=== PATIENT | female | born 1955 | race Caucasian/White ===

== ENCOUNTER 2017-02-08 00:12 | Inpatient (IN) | payer MEDICARE ==
[~2017-02-08] VITALS: Ht 154.9 cm; Wt 45.5 kg
[2017-02-08] VITALS (7 sets, daily range): BP systolic 97–153; BP diastolic 51–80
--- NOTE | ~2017-02-08 | WRIGHTHP ---
[place], [place] PATIENT HISTORY AND PHYSICAL EXAM NAME: RABIA CRAVEN [facility] #: [id number] UNIT #: [id number] ROOM: 505 DOCTOR: RAFAEL ADAMS DO BIRTHDATE: [birth year] DOS: 02/08/2017 PRIMARY CARE PHYSICIAN: None. The patient was seen and evaluated with the resident on 02/08/2017. Please see the resident's note for further details. ASSESSMENT: 1. Acute jvi-XA-pakrajmjg myocardial infarction. 2. Mild acute chronic obstructive pulmonary disease exacerbation. 3. Coronary artery disease with history of lex-QK-elywxxash myocardial infarction in 11/2015. 4. Chronic systolic heart failure, currently compensated. Last echocardiogram in 12/2016 measured an ejection fraction of 35-40%. 5. Chronic kidney disease, stage III. 6. History of automatic implantable cardioverter-defibrillator placement. 7. History of third-degree heart block. 8. Hypertension. 9. Hyperlipidemia. 10. Tobacco abuse. 11. History of congenital heart defect, requiring surgery at the age of 6. PLAN: Continue current treatment with heparin, statin, and a beta-evelin. Cardiology has been consulted. Continue to follow the cardiac enzymes. RAFAEL ADAMS DO CM:HISPHYS:PATIENT HISTORY AND PHYSICAL EXAMINATION 1311 1327 RAFAEL ADAMS DO 02/08/17 1328 interface
--- NOTE | ~2017-02-08 | EKG ---
[place], [place] ELECTROCARDIOGRAM REPORT NAME: RABIA CRAVEN UNIT #: [id number] ROOM: 505 DOCTOR: GREY BUTTERFIELD MD BIRTHDATE: [birth year] DOS: 02/08/2017 STUDY DONE: 02/08/2017. TIME: 12:48 a.m. The patient is in an AV sequentially paced rhythm with an occasional premature ventricular contraction. Average rate is 73 beats per minute. The ventricle is 100% paced aside from the PVC. Abnormal electrocardiogram. GREY BUTTERFIELD MD CM:EKGRPT:ELECTROCARDIOGRAM REPORT 1814 [id number] GREY BUTTERFIELD MD
[~2017-02-08 00:12] MED LIST: ASPIR-LOW81 MG PO; ATARAX25 MG PO; BACTRIM DS 8001 TA1 PO; DOXYCYCLINE100 M3 PO; PREDNISONE20 MG PO; VIBRAMYCIN100 MG PO; ZITHROMAX Z PA250 MG PO; ZYRTEC10 MG PO
[2017-02-08] MEDS ORDERED: LISINOPRIL5 MG PO (00:25)
[2017-02-08] MEDS ORDERED: CARVEDILOL6.25 MG PO (00:25)
[2017-02-08] MEDS ORDERED: ROSUVASTATIN CA10 MG PO (00:26)
[2017-02-08 00:50] LABS: BASO % 0.4 % (0.0-1.0); EOS # 0.1 10*3/uL (0.0-0.4); EOS % 1.9 % (1.0-4.0); HEMATOCRIT 32.9 % (37.0-47.0); HEMOGLOBIN 10.7 g/dl (12.0-16.0); LYMPH # 1.9 10*3/uL (1.3-4.4); LYMPH % 27.9 % (27.0-41.0); MEAN CORPUSCULAR HGB 26.4 pg (27.0-31.0); MEAN CORPUSCULAR HGB CONC 32.5 g/dl (33.0-37.0); MEAN PLATELET VOLUME 8.5 fl (9.6-12.3); MONO # 0.5 10*3/uL (0.1-1.0); MONO % 7.9 % (3.0-9.0); NEUT # 4.1 10*3/uL (2.3-7.9); NEUT % 61.8 % (47.0-73.0); PLATELET COUNT AUTOMATED 189 10*3/uL (130-400); RED BLOOD COUNT 4.06 10*6/uL (4.10-5.10); RED CELL DISTRI WIDTH 14.3 % (0-14.5); WHITE BLOOD COUNT 6.7 10*3/uL (4.8-10.8)
[2017-02-08 01:11] LABS: TROPONIN I 0.113 ng/ml (<0.045)
[2017-02-08 01:19] LABS: POTASSIUM 4.2 mmol/L (3.5-5.1)
[2017-02-08 04:28] LABS: PROTHROMBIN TIME 10.2 SECONDS (9.0-12.4)
[2017-02-08 05:59] LABS: CKMB 0.7 ng/ml (0.5-3.6)
[2017-02-08 06:09] LABS: BASO % 0.2 % (0.0-1.0); EOS % 0.2 % (1.0-4.0); HEMOGLOBIN 9.5 g/dl (12.0-16.0); LYMPH # 0.6 10*3/uL (1.3-4.4); LYMPH % 13.2 % (27.0-41.0); MEAN CELL VOLUME 80.3 fl (81.0-99.0); MEAN CORPUSCULAR HGB 26.3 pg (27.0-31.0); MEAN CORPUSCULAR HGB CONC 32.8 g/dl (33.0-37.0); MEAN PLATELET VOLUME 9.1 fl (9.6-12.3); MONO # 0.1 10*3/uL (0.1-1.0); MONO % 1.9 % (3.0-9.0); NEUT # 4.1 10*3/uL (2.3-7.9); NEUT % 84.1 % (47.0-73.0); PLATELET COUNT AUTOMATED 183 10*3/uL (130-400); RED BLOOD COUNT 3.61 10*6/uL (4.10-5.10); RED CELL DISTRI WIDTH 14.1 % (0-14.5); TROPONIN I 0.104 ng/ml (<0.045); WHITE BLOOD COUNT 4.9 10*3/uL (4.8-10.8)
[2017-02-08 06:11] LABS: MAGNESIUM 2.5 mg/dL (1.5-2.1); POTASSIUM 4.3 mmol/L (3.5-5.1)
[2017-02-08 06:17] LABS: THYROID STIM HORMONE (HS) 1.18 uIU/ml (0.358-4.75)
[2017-02-08 07:48] LABS: HEMOGLOBIN A1c 5.6 % (4.8-5.6)
[2017-02-08 11:24] LABS: CKMB 0.7 ng/ml (0.5-3.6)
[2017-02-08 11:26] LABS: TROPONIN I 0.089 ng/ml (<0.045)
[2017-02-08 18:17] LABS: CPK 36 U/L (26-192)
[2017-02-08 18:22] LABS: CKMB < 0.5 ng/ml (0.5-3.6)
[2017-02-08 18:23] LABS: TROPONIN I 0.089 ng/ml (<0.045)
[2017-02-09] VITALS: BP 108/50
[2017-02-09 06:55] LABS: HEMATOCRIT 25.7 % (37.0-47.0); HEMOGLOBIN 8.4 g/dl (12.0-16.0); LYMPH # 0.8 10*3/uL (1.3-4.4); LYMPH % 14.1 % (27.0-41.0); MEAN CELL VOLUME 81.6 fl (81.0-99.0); MEAN CORPUSCULAR HGB 26.7 pg (27.0-31.0); MEAN CORPUSCULAR HGB CONC 32.7 g/dl (33.0-37.0); MEAN PLATELET VOLUME 9.1 fl (9.6-12.3); MONO # 0.5 10*3/uL (0.1-1.0); MONO % 8.6 % (3.0-9.0); NEUT # 4.2 10*3/uL (2.3-7.9); NEUT % 76.6 % (47.0-73.0); PLATELET COUNT AUTOMATED 162 10*3/uL (130-400); RED BLOOD COUNT 3.15 10*6/uL (4.10-5.10); RED CELL DISTRI WIDTH 14.3 % (0-14.5); WHITE BLOOD COUNT 5.5 10*3/uL (4.8-10.8)
[2017-02-09 07:33] LABS: ALBUMIN 2.9 gm/dl (3.1-4.5); ALKALINE PHOSPHATASE 51 U/L (45-117); BILIRUBIN, TOTAL 0.1 mg/dl (0.2-1.0); BUN 21 mg/dl (7-24); CARBON DIOXIDE 26 mmol/L (21-32); CHLORIDE 112 mmol/L (98-107); EST GLOM FILT AFRICAN AMERICAN 41 ml/min; GLUCOSE 125 mg/dL (65-99); MAGNESIUM 2.5 mg/dL (1.5-2.1); POTASSIUM 4.4 mmol/L (3.5-5.1); SGOT/AST 9 IU/L (3-35); SODIUM 143 mmol/L (136-145); TOTAL PROTEIN 6.4 gm/dL (6.4-8.2)
[2017-02-09 07:55] LABS: SGPT/ALT < 6 U/L (12-78)
[2017-02-09 08:00] VITALS: BP 98/52
[2017-02-09 12:00] VITALS: BP 110/50
[2017-02-09 16:00] VITALS: BP 97/42
== END 2017-02-09 19:30 | disposition left against medical advice (07) | DRG 281 ==
LOC: ED 00:12 → 5E 01:32 → EDHOLD 01:32 → 5E 01:52
PROVIDERS: Emergency Medicine; Student in an Organized Health Care Education/Training Program
DX: I21.4 Non-ST elevation (NSTEMI) myocardial infarction (principal); N17.9 Acute kidney failure, unspecified; I44.2 Atrioventricular block, complete; I50.22 Chronic systolic (congestive) heart failure; I13.0 Hypertensive heart and chronic kidney disease with heart failure and stage 1 through stage 4 chronic kidney disease, or unspecified chronic kidney disease; N18.3 Chronic kidney disease, stage 3 (moderate); J44.1 Chronic obstructive pulmonary disease with (acute) exacerbation; D64.9 Anemia, unspecified; R73.9 Hyperglycemia, unspecified; F17.200 Nicotine dependence, unspecified, uncomplicated; Z53.21 Procedure and treatment not carried out due to patient leaving prior to being seen by health care provider; I25.10 Atherosclerotic heart disease of native coronary artery without angina pectoris; E78.5 Hyperlipidemia, unspecified; Z79.01 Long term (current) use of anticoagulants; Z79.899 Other long term (current) drug therapy; Z88.0 Allergy status to penicillin; Z88.2 Allergy status to sulfonamides; Z95.810 Presence of automatic (implantable) cardiac defibrillator; Z88.1 Allergy status to other antibiotic agents; Z91.012 Allergy to eggs; Z79.82 Long term (current) use of aspirin; Z82.49 Family history of ischemic heart disease and other diseases of the circulatory system; Z83.6 Family history of other diseases of the respiratory system

== ENCOUNTER 2019-09-05 16:45 | Inpatient (IN) | payer MEDICARE ==
[~2019-09-05] VITALS: Ht 157.4 cm; Wt 53.3 kg
--- NOTE | ~2019-09-05 | PR ---
[place], [place] PROGRESS NOTE NAME: RABIA CRAVEN UNIT #: [id number] ROOM: 408 DOCTOR: NARENDRA LEONG MD BIRTHDATE: [birth year] DOS: 09/08/2019 SUBJECTIVE: A 24-hour events noted. Discussed with the nursing staff. The patient is being evaluated by ____ lightning rod installer also, being treated for pneumonia. Does have shortness of breath. She is comfortably sleeping at this point. No obvious chest discomfort. REVIEW OF SYSTEMS: A 6-8 systems reviewed. PAST MEDICAL HISTORY: Significant for congenital history, coronary artery disease, cardiomyopathy, history of complete heart block, and COPD. PHYSICAL EXAMINATION: VITAL SIGNS: The patient is in sinus rhythm, pressure is 120/80, pulse rate is 101, sinus tachycardia. I's and O's is positive 600 mL. NECK: Supple. HEART: Sounds are regular. LUNGS: Diminished air entry with few coarse rhonchi. ABDOMEN: Soft, nontender. NEUROLOGIC: Stable. LABORATORY DATA: Pending. Yesterday's hemoglobin and hematocrit were 9.4 and 30.3. Creatinine is 2.2. IMPRESSION: Acute exacerbation of chronic obstructive pulmonary disease, history of cardiac dysrhythmia, permanent pacemaker, history of low ejection fraction, and history of chronic nicotine dependence. RECOMMENDATIONS: Continue the bronchodilators, steroids, and antibiotics. Dr. Hoyos is following this patient. Dr. Hoyos is supposed to review the echocardiogram. Monitor the heart rate and blood pressure closely and continue respiratory toilet. Chest x-ray done yesterday shows worsening patchy consolidation in both lung bases. As mentioned, Pulmonary is following and we will follow up. [place], [place] PROGRESS NOTE NAME: RABIA CRAVEN UNIT #: [id number] ROOM: 408 DOCTOR: NARENDRA LEONG MD BIRTHDATE: [birth year] NARENDRA LEONG MD CM:PNTRANS 2 3 NARENDRA LEONG MD 09/08/19733 interface
--- NOTE | ~2019-09-05 | EKG ---
[place], [place] ELECTROCARDIOGRAM REPORT NAME: RABIA CRAVEN UNIT #: [id number] ROOM: 408 DOCTOR: XIMENA DRAFT REPORT BIRTHDATE: [birth year] [facility] Test Date: 2019-09-05 Test Time: 19:51:45 Pat Name: RABIA CRAVEN Department: Room: 408 Gender: F Margin Analyst: : 1955 Requested By: AMY SUH Order Number: [id number] Reading MD: Vazquez Robin Measurements Intervals [place] Rate: 98 P: 26 CT: 203 QRS: -36 QRSD: 129 T: 130 QT: 444 QTc: 568 Interpretive Statements Atrial-sensed ventricular-paced complexes occ PVCs Electronically Signed On 09-06-2019 11:20:32 PST by Vazquez Robin CM:EKGRPT:ELECTROCARDIOGRAM REPORT 50 1120 AMY BUENO DRAFT REPORT AMY SUH MD
--- NOTE | ~2019-09-05 | CON ---
[place], [place] REPORT OF CONSULTATION NAME: RABIA CRAVEN UNIT #: [id number] ROOM: 408 DOCTOR: SALO MOCTEZUMANARENDRA BIRTHDATE: [birth year] DOS: 09/06/2019 I am covering for Dr. Hoyos. REASON FOR CONSULTATION: Shortness of breath. HISTORY OF PRESENT ILLNESS: A 64-year-old female admitted with shortness of breath for the last 4-5 days. The patient states that she smokes, but tapered off recently, but she continues to smoke. The patient started feeling short of breath for the last week and could not breathe yesterday and came. The patient states that she has a permanent pacemaker, history of myocardial infarction, did have congenital heart defect that was repaired when she was 6. She does follow up with Dr. Hoyos as an outpatient, but as mentioned the compliance is a big issue. The patient was admitted with respiratory failure and possible pneumonia on the chest x-ray and being treated. PAST MEDICAL HISTORY: Significant for chronic kidney disease, complete heart block by ECG, history of congenital septal defect, history of myocardial infarction, systolic congestive heart failure. PAST SURGICAL HISTORY: Permanent pacemaker, open heart surgery, section. SOCIAL HISTORY: Continues to smoke heavily. Denies any alcohol. FAMILY HISTORY: Positive for coronary artery disease. ALLERGIES: PENICILLIN. REVIEW OF SYSTEMS: CONSTITUTIONAL: No fever, no chills. HEENT: No visual disturbances or hearing problems. CARDIOVASCULAR: No chest discomfort. RESPIRATORY: Does have shortness of breath. ABDOMEN: No nausea, no vomiting. No abdominal pain. GENITOURINARY: No dysuria, hematuria. NEUROLOGIC: Stable. PHYSICAL EXAMINATION: VITAL SIGNS: Blood pressure is 119/60. HEENT: Unremarkable. NECK: Supple, no JVD. LUNGS: Diminished breath sounds with bilateral rales and rhonchi. HEART: Heart sounds are regular. ABDOMEN: Soft, nontender. NEUROLOGIC: Stable. EKGs intermittent paced rhythm. LABORATORY DATA: Sodium 141, potassium 4, creatinine is 1.7, hemoglobin 11.2, hematocrit 35.5. Chest x-ray showed patchy infiltrates, most pronounced on the right mid and lower lung. [place], [place] REPORT OF CONSULTATION NAME: RABIA CRAVEN UNIT #: [id number] ROOM: 408 DOCTOR: NARENDRA LEONG MD BIRTHDATE: [birth year] IMPRESSION: Acute respiratory failure with hypoxia secondary to probable community-acquired pneumonia, mildly elevated troponin, the last troponin was 0.478, which probably secondary to demand ischemia. Severe septicemia, tobacco abuse, permanent pacemaker, noncompliance. RECOMMENDATIONS: Recommended her to continue the present medications as ordered. We will get an echocardiogram to assess the ejection fraction. Continue with IV antibiotics as ordered and I will follow up. NARENDRA LEONG MD CM:CONSTR:REPORT OF CONSULTATION 1059 09/06/19 1830 interface
--- NOTE | ~2019-09-05 | PR ---
[place], [place] PROGRESS NOTE NAME: RABIA CRAVEN UNIT #: [id number] ROOM: 408 DOCTOR: YASHIRA WALKER MD BIRTHDATE: [birth year] DOS: 09/09/2019 SUBJECTIVE: She has been noted without any acute distress this morning. Denies symptoms of chest pain, fever or chills. She has a CT scan of the chest that was done without contrast yesterday. Shortness of breath was noted to be decreased. Denies symptoms of hemoptysis. Denies symptoms of headache or diplopia. The remaining systems are reviewed with all noted negative. OBJECTIVE: VITAL SIGNS: For the patient, which are recorded shows normal temperature this morning, respiratory rate 16-18, heart rate 103-112, blood pressure 132/75-122/74. The patient was not noted any distress. Pulse ox saturation 97% saturation on 2 liters nasal cannula. HEENT: Head was atraumatic. Eyes nonicterus. NECK: Supple. CARDIOVASCULAR: S1, S2 audible. LUNGS: Noted with decreased breaths in the lungs. There were no crackles or wheezing present. ABDOMEN: Soft, nontender. Bowel sounds present. EXTREMITIES: The patient was noted without any significant edema. MUSCULOSKELETAL: Noted without any acute deformities. LABORATORY DATA: The echocardiogram that was done yesterday was noted evidence of severe mitral valve regurgitation. Left ventricular ejection fraction also noted decreased 35-40%. CT scan of the chest revealed, shows moderate left and small left pleural fluid with compression atelectasis in the lungs as well. BMP: BUN 62, creatinine 2.63. CBC that was done shows a normal WBC count, hemoglobin 9.5, and platelet count was normal. IMPRESSION: Acute congestive heart failure, bilateral pleural fluid, compression atelectasis, acute kidney injury, and severe mitral valve regurgitation, ____ ejection fraction as well. PLAN OF THERAPY: No change in pulmonary standpoint, conservative treatment will be recommended for pleural fluid and other medical management. Further recommendation per vacuum caster for the congestive heart failure, mitral valve regurgitation management and the Nephrology Service for kidney injury. [place], [place] PROGRESS NOTE NAME: RABIA CRAVEN UNIT #: [id number] ROOM: 408 DOCTOR: YASHIRA WALKER MD BIRTHDATE: [birth year] YASHIRA GLOVER MD CM:PNTRANS 1047 1715 YASHIRA NOVAK MD 09/09/19 1740 interface
--- NOTE | ~2019-09-05 | PR ---
[place], [place] PROGRESS NOTE NAME: RABIA CRAVEN [facility] #: [id number] UNIT #: [id number] ROOM: 408 DOCTOR: BERENICE NJ MD BIRTHDATE: [birth year] DOS: 09/07/2019 SUBJECTIVE: The patient was seen by Dr. Gaffney on my behalf. She came in with some chest pain and cough and has been treated for pneumonia now. She does not have any chest pain. Has cough with some expectoration. No chills or shivering. Appetite is fine. No ____. She still smokes cigarettes. PHYSICAL EXAMINATION: GENERAL: This is a patient who is alert, oriented. VITAL SIGNS: Pulse is 100 irregular, blood pressure 122/65. NECK: JVP normal. LUNGS: She has rhonchi and crackles bilaterally. EXTREMITIES: No edema in lower extremities. LABORATORY DATA: ECG was unremarkable. Her troponin I level was 0.466. IMPRESSION: This patient with risk factors for coronary artery disease and slightly increased troponin I level. She has pneumonia, which is being treated. This has worsened her chronic obstructive pulmonary disease. I would do an echocardiogram and also repeat another troponin levels and see which way it turns. BERENICE NJ MD CM:PNTRANS 1733 [id number] BERENICE NJ MD 09/08/19 1201 interface
--- NOTE | ~2019-09-05 | PR ---
[place], [place] PROGRESS NOTE NAME: RABIA CRAVEN UNIT #: [id number] ROOM: 408 DOCTOR: BERENICE JN MD BIRTHDATE: [birth year] DOS: 09/09/2019 SUBJECTIVE: I talked to the patient in detail. She has been short of breath for years and had gotten worse in the last month or two. She has not had any palpitation, no loss of consciousness. Her appetite is poor. She remains lethargic. PHYSICAL EXAMINATION: GENERAL: This is a patient who is somewhat fatigued, quiet, alert. VITAL SIGNS: Pulse is regular at 100 beats per minute, blood pressure 122/74. NECK: JVP is elevated with positive AJR. Parasternal heave is present. CARDIOVASCULAR: [place] is displaced laterally. There is a grade 4-5/6 pansystolic murmur over the apex radiating laterally and anteriorly. EXTREMITIES: She has mild trace edema of the lower extremities. LUNGS: Breath sounds are diminished with lot of crackles in both lungs. LABORATORY DATA: An echocardiogram was done, which I also reviewed It was read by Dr. Gaffney however, it demonstrated an LV ejection fraction of about 40%, dilated left ventricle, severely dilated right atrium and there appears to be prolapse of both mitral leaflets with severe mitral regurgitation. There is moderate tricuspid regurgitation and at least moderate pulmonary hypertension. Chest x-ray shows pulmonary edema. IMPRESSION: 1. This patient has took-pw-slpdujee cardiomyopathy, probably related to severe mitral regurgitation, which had been demonstrated quite a long time ago. 2. Severe mitral regurgitation due to mitral valve prolapse. 3. Pulmonary hypertension, probably combination of chronic obstructive pulmonary disease and elevated left-sided pressures. RECOMMENDATIONS: My recommendations are to continue with IV furosemide, but I believe this patient needs to be transferred to a tertiary center for further assessment of mitral valve to look for underlying coronary artery disease and then consider mitral valve repair or replacement. I discussed this with Dr. Ocampo, resident and I believe they will make arrangements for transfer. [place], [place] PROGRESS NOTE NAME: RABIA CRAVEN UNIT #: [id number] ROOM: 408 DOCTOR: BERENICE NJ MD BIRTHDATE: [birth year] BERENICE NJ MD CM:PNTRANS 09 19 BERENICE NJ MD 09/09/19 1221 interface
--- NOTE | ~2019-09-05 | CON ---
[place], [place] REPORT OF CONSULTATION NAME: [facility]VEN [id number] UNIT #: [id number] ROOM: 408 DOCTOR: ADALBERTO NOVAK MDYASHIRA BIRTHDATE: [birth year] DOS: 09/07/2019 PULMONARY CONSULTATION, EVALUATION AND MANAGEMENT CONSULTATION REQUESTED BY: Hospitalist service. REASON FOR CONSULTATION: For assessment of the acute pneumonia, nonresolving respiratory symptoms. HISTORY OF PRESENT ILLNESS: This is a 64-year-old white female patient who has been admitted to the hospital under care of hospitalist service on the date of 09/05/2019. The patient reported she has been getting treated for about 4-5 days prior to admission to the hospital. She has reported symptoms of increased chest congestion and coughing, which has developed that has not been resolving. Symptoms noted progressive worsening. The shortness of breath later on was associated with cough, which has been reported by the patient with small amount of sputum expectoration, at times yellowish in color. She denies symptoms of chest pain, but chest tightness was reported. Denies any symptoms of hemoptysis. The patient does report symptoms of wheezing. Since hospitalization, she has been treated at this time for the respiratory failure as well as acute pneumonia, but the symptom resolution has not been noted significant. REVIEW OF SYSTEMS: CONSTITUTIONAL: Fatigue and tiredness reported. Denies symptoms of fever or chills. EYES: Denies any burning, redness, or tenderness. EARS, NOSE, THROAT SYMPTOMS: No sore throat, hoarseness, otalgia, postnasal drainage or epistaxis. CARDIOVASCULAR: Denies anginal pain, edema, pain of the lower extremities. GASTROINTESTINAL: Denies dysphagia, nausea, vomiting, diarrhea, abdominal pain, hematemesis, melena, or hematochezia. GENITOURINARY SYMPTOMS: No dysuria, suprapubic pain, or hematuria. MUSCULOSKELETAL: No acute joint pain, redness, or tenderness. Remaining systems were reviewed with the patient, they were noted all negative. PAST MEDICAL HISTORY: 1. History of chronic nicotine dependence. 2. History of congenital atrial septal defect. 3. Essential hypertension. 4. Coronary artery disease. 5. Heart failure with reduced ejection fraction. 6. History of complete heart block as well. 7. Possible chronic obstructive pulmonary disease. 8. History of chronic kidney disease stage 3. PAST SURGICAL HISTORY: 1. Heart surgery for the management of the cardiac defect. 2. Permanent pacemaker insertion. [place], [place] REPORT OF CONSULTATION NAME: RABIA CRAVEN UNIT #: [id number] ROOM: 408 DOCTOR: ADALBERTO NOVAK MD,YASHIRA BIRTHDATE: [birth year] 3. . SOCIAL HISTORY: She lives at home. She has been and does not have any children. Stating smoking half a pack of cigarettes actively for many years. FAMILY HISTORY: The patient's father from complications of heart problem and emphysema at age of 85 years. Mother at age of 36 years of acute myocardial infarction. HOME MEDICATIONS: Which were recorded on admission aspirin 81 mg, lisinopril 5 mg b.i.d., Coreg 6.25 mg p.o. b.i.d., and Crestor 30 mg daily. Medications which has been administered this morning reviewed as active use of Solu-Medrol 40 mg b.i.d., Zithromax intravenously, Rocephin 1 g daily, DuoNeb q.4 hours, Mucinex 1200 mg p.o. b.i.d., vitamin D, heparin for DVT prophylaxis, and some other p.r.n. meds. DRUG ALLERGIES: Reported: 1. BACTRIM. 2. PENICILLINS. PHYSICAL EXAMINATION: GENERAL: This is a 64-year-old female patient currently noted to be awake and alert without any distress. Height of 5 feet 2 inches, weight 207 pounds, BMI 19.6. VITAL SIGNS: Temperature curve was noted as normal, respiratory rate between 26 the highest to 18. The heart rate 133-82. Blood pressure 113/70-110/68. Pulse oxygen saturation recorded in the Emergency Room on 3 liters nasal cannula to 4 liters 95% saturation. Pulse oxygen recorded by the ambulance was 84% at rest on room air. HEENT: Head was atraumatic. Eyes nonicterus. NECK: Supple. CARDIOVASCULAR: S1, S2 is audible. LUNGS: Noted decreased breath in the lungs bilaterally, scattered crackles. There was no wheezing. ABDOMEN: Soft, nontender. Bowel sounds present. EXTREMITIES: Without edema. MUSCULOSKELETAL: Noted without any acute deformities. CENTRAL NERVOUS SYSTEM: Cranial nerves 2-12 intact. LABORATORY DATA: CBC that was done on 09/05/2019, WBC count normal, hemoglobin 11.2, platelet count were normal. PTT was noted as normal. The CMP on 09/05/2019, BUN 20, creatinine 1.75. Troponin minimally elevated at 0.0498. CBC this morning, WBC count 4.6, hemoglobin 9.8, platelet count of 169,000. BMP that was done yesterday, BUN 22, creatinine 1.76. BMP this morning, BUN of 24, creatinine 1.92, sodium 132. Blood culture, no bacterial growth was noted from admission. CBC of this morning, WBC count 4.4, hemoglobin 9.4, platelet count of 84,000. IMPRESSION: The patient who has been currently admitted to the hospital noted with: [place], [place] REPORT OF CONSULTATION NAME: RABIA CRAVEN UNIT #: [id number] ROOM: [facility] DOCTOR: YASHIRA WALKER MD BIRTHDATE: [birth year] 1. Acute exacerbation of chronic obstructive pulmonary disease with acute hypoxic respiratory failure as well as a strong suggestion. Current x-ray suggestive of acute congestive heart failure with reduced ejection fraction. 2. History of cardiac dysrhythmia, pacemaker in place as well. 3. The patient with history of low-grade chronic nicotine dependence as well with new onset of chronic obstructive pulmonary disease, has not been treated for chronic obstructive pulmonary disease from the past. PLAN OF THERAPY: Continue the steroids, bronchodilators and oxygen supplementation. Cardiology consultation has been ordered, which is noted in progress. Obtain a PA lateral chest x-ray to reassess with recurrent congestive heart failure, possible pleural effusions. The kidney function of the patient was noted abnormal, mild increase of creatinine secondary to diuretics that needs to be monitored closely for this. Other plan of therapy and care plan for treatment, additional changes will be recommended based on progression of the illness. The patient has not been started on nicotine replacement patches, stating that she has not been craving tobacco use. Counseling about tobacco cessation has been done at the bedside as well. Titrate oxygen supplementation, maintain pulse ox 92% or greater as well. Arterial blood gas will be obtained to assess the ventilatory assessment as well. Titrate oxygen supplementation, maintain pulse ox 92% or greater. At this time, the patient does not require any immediate need of the BiPAP; however, the BiPAP need could be assessed based on further progression of the illness. No changes in antibiotics or corticosteroids needs to be made. Thank you for allowing me to participate in the care of this patient. YASHIRA GLOVER MD CM:CONSTR:REPORT OF CONSULTATION 1240 09/07/19 2020 interface
--- NOTE | ~2019-09-05 | EKG ---
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
--- NOTE | ~2019-09-05 | EKG ---
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
--- NOTE | ~2019-09-05 | PR ---
[place], [place] PROGRESS NOTE NAME: RABIA CRAVEN UNIT #: [id number] ROOM: 408 DOCTOR: ADALBERTO NOVAK MD,YASHIRA BIRTHDATE: [birth year] DOS: 09/08/2019 PULMONARY PROGRESS NOTE SUBJECTIVE: She has been noted comfortable at this time, resting on the bed. Shortness of breath noted somewhat decreased. Cough has been noted [id number] without any sputum expectoration and symptoms of chest pain reported by the patient. headache, diplopia, nausea, vomiting, diarrhea, abdominal pain, hematemesis, melena, or hematochezia. The review of systems otherwise noted negative. OBJECTIVE: VITAL SIGNS: Normal temperature, respiratory rate 18, heart rate 101, blood pressure 124/78 recorded this morning. The pulse oxygen saturation on 2.5 liters nasal cannula 96% saturation recorded. HEENT: Examination shows head was atraumatic. Eyes nonicterus. NECK: Supple. CARDIOVASCULAR: S1, S2 audible. LUNGS: Noted without any wheezing or crackles at this time. Breaths are noted decreased in the lungs bilaterally with scattered expiratory wheezing. There were no crackles heard. ABDOMEN: Soft, nontender. Bowel sounds present. EXTREMITIES: No new change. MUSCULOSKELETAL: Without acute deformities. CENTRAL NERVOUS SYSTEM: Generally intact. LABORATORY DATA: Arterial blood gas that was done yesterday, pH of 7.24, pCO2 of 44, pO2 80 consistent with mild respiratory acidosis, mostly metabolic acidosis as well. The BMP that was done this morning, BUN 41, creatinine 2.21. Glucose 132. Arterial blood gas this morning gas. CBC this morning, WBC count 8.8, hemoglobin 9, hematocrit 33.0, platelet count was 196,000. Chest x-ray, 2-view, which was completed yesterday was reviewed personally and it shows evidence of basilar area of infiltration atelectasis or pleural fluid would be suspected. IMPRESSION: 1. The patient who has been currently noted with acute kidney injury, which are noted gradually progressive metabolic acidosis and respiratory acidosis. 2. Acute pneumonia, possibly superimposed congestive heart failure. 3. Acute exacerbation of chronic obstructive pulmonary disease as well. PLAN OF MANAGEMENT: Continuation of the bronchodilators, oxygen supplementation, and change in the antibiotic, Zithromax, and doxycycline. Additional coverage of gram-positive organisms. Diuresis carefully to be done considering her kidney function as well. Avoid intravenous fluids administration. Sputum for Gram stain culture was ordered. Another chest x-ray will be done in the morning for as well. Supportive care. [place], [place] PROGRESS NOTE NAME: RABIA CRAVEN UNIT #: [id number] ROOM: [facility] DOCTOR: YASHIRA WALKER MD BIRTHDATE: [birth year] YASHIRA GLOVER MD CM:JOSE [id number] YASHIRA NOVAK MD [id number] interface
[~2019-09-05 16:45] MED LIST changes: +CARVEDILOL6.25 MG PO; +LISINOPRIL5 MG PO; +ROSUVASTATIN CA10 MG PO
[2019-09-05 17:12] LABS: BASO % 0.5 % (0.0-1.0); EOS % 0.5 % (1.0-4.0); HEMATOCRIT 35.5 % (37.0-47.0); HEMOGLOBIN 11.2 g/dl (12.0-16.0); LYMPH # 1.1 10*3/uL (1.3-4.4); LYMPH % 18.1 % (27.0-41.0); MEAN CELL VOLUME 83.9 fl (81.0-99.0); MEAN CORPUSCULAR HGB 26.5 pg (27.0-31.0); MEAN CORPUSCULAR HGB CONC 31.5 g/dl (33.0-37.0); MONO # 0.4 10*3/uL (0.1-1.0); MONO % 6.5 % (3.0-9.0); NEUT # 4.6 10*3/uL (2.3-7.9); NEUT % 74.2 % (47.0-73.0); PLATELET COUNT AUTOMATED 200 10*3/uL (130-400); RED BLOOD COUNT 4.23 10*6/uL (4.10-5.10); RED CELL DISTRI WIDTH 14.6 % (0-14.5); WHITE BLOOD COUNT 6.1 10*3/uL (4.8-10.8)
[2019-09-05 17:21] LABS: ACT PARTIAL THROMBO TIME 25.1 SECONDS (20.0-32.1); INTERNATIONAL NORM RATIO 0.9 (2.0-3.5)
[2019-09-05 17:31] LABS: ALBUMIN 3.1 gm/dl (3.1-4.5); CREATININE 1.75 mg/dL (0.55-1.02); TOTAL PROTEIN 7.2 gm/dL (6.4-8.2)
[2019-09-05 17:35] LABS: TROPONIN I 0.498 ng/ml (<0.045)
--- NOTE | 2019-09-05 17:35 | NUR ---
TROPONIN 0.498. MITZI MUÑOZ NOTIFIED.
[2019-09-05 17:44] VITALS: BP 140/79
--- NOTE | 2019-09-05 18:04 | NUR ---
DINNER TRAY ORDERED. PT IN NO DISTRESS.
[2019-09-05 18:54] VITALS: BP 135/77
--- NOTE | 2019-09-05 19:03 | NUR ---
NURSE TO NURSE REPORT GIVEN TO THIS RN.PT AWAITING BED ASSIGNMENT FOR ADMISSION TO UNIT.
[2019-09-05 19:35] VITALS: BP 127/70
--- NOTE | 2019-09-05 19:50 | NUR ---
PT PROVIDED BOXED SANDWICH LUNCH AND DRINK.
--- NOTE | 2019-09-05 19:51 | NUR ---
PT UPDATED ON CURRENT PLAN OF CARE AND PROVIDED ROOM#.
--- NOTE | 2019-09-05 19:55 | NUR ---
LAB CALLED WITH CRITICAL TROPONIN LEVEL 0.478.
[2019-09-05 20:02] VITALS: BP 119/61
[2019-09-05 20:20] VITALS: BP 135/79
--- NOTE | 2019-09-05 20:20 | NUR ---
A 64, admitted to , under the services of DILCIA Grullon DO with a diagnosis of COMMUNITY ACQUIRED PNEUMONIA, ELEVATED TROPONINS. Chief complaint is SOB. Patient arrived via bed from ER. Monitor applied. Initial assessment completed. Vital signs taken and recorded. DILCIA GRULLON DO notified of admission to the unit. Orders received. See assessment for past medical history, medications and allergies. Patient and/or family oriented to unit. [address] visitation policy reviewed. Clothing/patient valuable form completed. FILIPE MOON
--- NOTE | 2019-09-05 22:00 | NUR ---
PT IS ASLEEP IN BED AT THIS TIME. NO S/S OF DISTRESS NOTED. RESPS ARE EASY AND NONLABORED. BED IS LOW, CALL LIGHT WITHIN REACH. WILL CONTINUE TO MONITOR.
--- NOTE | 2019-09-05 23:32 | NUR ---
DR ALCALA CALLED AND MADE AWARE OF TROPONIN 0.466. NO NEW ORDERS AT THIS TIME.
--- NOTE | 2019-09-05 23:49 | NUR ---
PATIENT REQUESTING BREATHING TREATMENT.RESPIRATORY CALLED.
[2019-09-06] VITALS: BP 113/77
--- NOTE | 2019-09-06 00:10 | NUR ---
IV IN RIGHT HAND INFILTRATED. DISCONTINUED AND RESTARTED.
--- NOTE | 2019-09-06 00:15 | NUR ---
IV started right forearm with #22 protective cath after 1 attempts. Site prepped with Chloroprep. Sterile dressing applied. Patient tolerated procedure well. IV infusing at 125 cc/hr. DOUG CARVALHO
--- NOTE | 2019-09-06 02:00 | NUR ---
PATIENT RESTING WITH EYES CLOSED. RESPIRATIONS EASY AND UNLABORED. CALL LIGHT WITHIN REACH. WILL MONITOR.
--- NOTE | 2019-09-06 04:00 | NUR ---
PATIENT RESTING WITH EYES CLOSED.RESPIRATIONS EASY AND UNLABORED. CALL LIGHT WITHIN REACH. WILL MONITOR FOR EFFECTIVENESS.
--- NOTE | 2019-09-06 05:33 | NUR ---
24 HR chart check completed.
[2019-09-06 06:36] LABS: BASO % 0.7 % (0.0-1.0); EOS % 0.7 % (1.0-4.0); HEMATOCRIT 31.5 % (37.0-47.0); HEMOGLOBIN 9.8 g/dl (12.0-16.0); LYMPH # 1.6 10*3/uL (1.3-4.4); LYMPH % 34.5 % (27.0-41.0); MEAN CORPUSCULAR HGB 26.1 pg (27.0-31.0); MEAN CORPUSCULAR HGB CONC 31.1 g/dl (33.0-37.0); MEAN PLATELET VOLUME 9.4 fl (9.6-12.3); MONO # 0.5 10*3/uL (0.1-1.0); MONO % 10.1 % (3.0-9.0); NEUT # 2.5 10*3/uL (2.3-7.9); PLATELET COUNT AUTOMATED 169 10*3/uL (130-400); RED BLOOD COUNT 3.75 10*6/uL (4.10-5.10); RED CELL DISTRI WIDTH 14.5 % (0-14.5); WHITE BLOOD COUNT 4.6 10*3/uL (4.8-10.8)
[2019-09-06 06:56] LABS: CREATININE 1.76 mg/dL (0.55-1.02); PHOSPHOROUS 4.3 mg/dL (2.5-4.9); POTASSIUM 4.1 mmol/L (3.5-5.1)
[2019-09-06 07:06] LABS: FREE T4 0.97 ng/dl (0.76-1.46); THYROID STIM HORMONE (HS) 2.81 uIU/ml (0.358-4.75)
[2019-09-06 07:55] LABS: VITAMIN D, 25-HYDROXY 20.8 ng/mL (30-100)
[2019-09-06 08:00] VITALS: BP 115/73
--- NOTE | 2019-09-06 10:03 | NUR ---
MEDICATED WITH PRN ZOFRAN PER ORDER.
[2019-09-06 12:00] VITALS: BP 106/67
[2019-09-06 16:00] VITALS: BP 111/63
--- NOTE | 2019-09-06 19:00 | NUR ---
ASSUMED CARE FOR THIS PT AT THIS TIME. PT AWAKE IN BED WATCHING TV. NO C/O VOICED AT PRESENT TIME. CALL LIGHT IN REACH.
[2019-09-06 20:00] VITALS: BP 125/76; BP 126/66
[2019-09-07] VITALS: BP 113/70
--- NOTE | 2019-09-07 02:52 | NUR ---
24 HR chart check completed.
[2019-09-07 07:14] LABS: BASO % 0.2 % (0.0-1.0); HEMATOCRIT 30.3 % (37.0-47.0); HEMOGLOBIN 9.4 g/dl (12.0-16.0); LYMPH # 0.5 10*3/uL (1.3-4.4); LYMPH % 11.9 % (27.0-41.0); MEAN CELL VOLUME 86.3 fl (81.0-99.0); MEAN CORPUSCULAR HGB 26.8 pg (27.0-31.0); MEAN PLATELET VOLUME 9.6 fl (9.6-12.3); MONO # 0.4 10*3/uL (0.1-1.0); MONO % 8.5 % (3.0-9.0); NEUT # 3.4 10*3/uL (2.3-7.9); NEUT % 78.9 % (47.0-73.0); PLATELET COUNT AUTOMATED 184 10*3/uL (130-400); RED BLOOD COUNT 3.51 10*6/uL (4.10-5.10); RED CELL DISTRI WIDTH 14.7 % (0-14.5); WHITE BLOOD COUNT 4.4 10*3/uL (4.8-10.8)
[2019-09-07 07:18] LABS: CREATININE 1.92 mg/dL (0.55-1.02); POTASSIUM 4.4 mmol/L (3.5-5.1)
[2019-09-07 07:39] VITALS: BP 120/70
--- NOTE | 2019-09-07 08:08 | NUR ---
PT WAS AWAKE AND PLEASANT, PT. STATES NO COMPLAINTS AT THIS TIME, WILL CONTINUE TO MONITOR TYLOR JAYNA SPMILAGROSCC
--- NOTE | 2019-09-07 09:00 | NUR ---
Fill Manager in to talk to patient. Patient states lives at home with alone. There are few steps in the home. Physician: none Pharmacy: [facility] Home health services: none Patient's level of ADLs: INDEPENDENT Patient has working utilities: all working DME: none Follow-up physician's appointment after d/c: will be made by hospitalist nurse director upon discharge Does patient want to access PORTAL?: no Discharge plan discussed with patient, she lives at home, is independent in adls and ambulation, she states she will return home when medically stable and denies any home needs. patient does not have a regular doctor and will need one upon discharge, she will be given a list of physicians to chose to have her follow up appointment made with, case management will follow. RALPH SWARTZ
--- NOTE | 2019-09-07 10:08 | NUR ---
DR. GLOVER AWARE OF CONSULT AND HAS SEEN THE PATIENT.
--- NOTE | 2019-09-07 10:37 | NUR ---
PT. IS RECIEVING BREATHING TREATMENT, TRIED TO APPLY TEDS, PT. SAID "NOT AT THIS TIME". TYLOR DORANTES SPNRCC
--- NOTE | 2019-09-07 11:04 | NUR ---
MEDICATED FOR NAUSEA, PT REFUSES ANY FURTHER ANTIBIOTICS AND ASKED THAT THE AZITHROMYCIN NOT BE RECONNECTED, HIMANSHU BRAY NOTIFIED, DR. NJ IN TO SEE PT LETICIA BARBOZACC
--- NOTE | 2019-09-07 11:06 | NUR ---
PATIENT REFUSING TO TAKE THE REST OF ZITHROMAX IV. DR. SELF NOTIFIED.
[2019-09-07 11:39] VITALS: BP 110/68
--- NOTE | 2019-09-07 11:48 | NUR ---
PT. HAS NO COMPLAINTS AT THIS TIME, ZOFRAN HELPED WITH NAUSEA, PT. DOSENT FEEL WELL, REFUSED BATH, IS RESTING TYLOR DORANTES SPNRCC
--- NOTE | 2019-09-07 13:31 | NUR ---
ABG'S DRAWN BY RESP THERAPY [facility]
--- NOTE | 2019-09-07 13:33 | NUR ---
TO RADIOLOGY FOR CXR ACCOMPANIED BY TRANSPORT LETICIA BARBOZACC
[2019-09-07 13:37] LABS: ABG HCO3 18.3 mmol/l (22-26); ABG O2 SATURATION 95.8 % (95-97); ARTERIAL BLOOD GAS PH 7.242 (7.35-7.45); ARTERIAL BLOOD GAS PO2 80.5 mmHg (80-90)
[2019-09-07 13:38] LABS: ABG BASE EXCESS -8.2 mmol/L (-2.0-2.0)
--- NOTE | 2019-09-07 15:15 | NUR ---
PATIENT STATED SHE DID NOT NEED ON BI-PAP AT THIS TIME. WILL WEAR IT AT HS.
[2019-09-07 16:00] VITALS: BP 123/65
--- NOTE | 2019-09-07 19:00 | NUR ---
ASSUMED CARE FOR THIS PT AT THIS TIME. PT AWAKE IN BED WATCHING TV. C/O COUGH. PT TEACHING PROVIDED RE COUGH AND DEEP BREATHING TO PROMOTE LUNG EXPANSION AND MUCUS PRODUCTION. PT STATES SHE HAS BEEN USING IS EVERY HOUR. PT ADVISED SOLUMEDROL WAS INCREASED TODAY. CALL LIGHT IN REACH.
[2019-09-07 20:00] VITALS: BP 125/85
--- NOTE | 2019-09-07 22:30 | NUR ---
PT REFUSED TO WEAR BIPAP. SHE SAID SHES BREATHING JUST FINE
[2019-09-08] VITALS: BP 120/81
[2019-09-08 06:51] LABS: HEMOGLOBIN 9.9 g/dl (12.0-16.0); MEAN CELL VOLUME 86.4 fl (81.0-99.0); MEAN CORPUSCULAR HGB 25.9 pg (27.0-31.0); MEAN PLATELET VOLUME 9.9 fl (9.6-12.3); PLATELET COUNT AUTOMATED 196 10*3/uL (130-400); RED BLOOD COUNT 3.82 10*6/uL (4.10-5.10); RED CELL DISTRI WIDTH 14.8 % (0-14.5); WHITE BLOOD COUNT 8.8 10*3/uL (4.8-10.8)
[2019-09-08 07:05] LABS: CREATININE 2.21 mg/dL (0.55-1.02); POTASSIUM 4.7 mmol/L (3.5-5.1)
[2019-09-08 07:56] LABS: ABG HCO3 19.1 mmol/l (22-26); ABG O2 SATURATION 77.4 % (95-97); ARTERIAL BLOOD GAS PCO2 50.1 mmHg (35-45); ARTERIAL BLOOD GAS PH 7.206 (7.35-7.45); ARTERIAL BLOOD GAS PO2 45.9 mmHg (80-90)
[2019-09-08 07:57] LABS: ABG BASE EXCESS -8.2 mmol/L (-2.0-2.0)
[2019-09-08 08:00] VITALS: BP 124/78
[2019-09-08 08:05] LABS: ACANTHOCYTES FEW; OVALOCYTES FEW; PLATELET SUFFICIENCY NORMAL (NORMAL); TOTAL CELLS COUNTED 100 #CELLS
[2019-09-08 08:06] LABS: TOXIC GRANULATION SLIGHT
--- NOTE | 2019-09-08 09:00 | NUR ---
case management visits with patient, she will return home when medically stable and denies any home needs, she will have an echo today and continue with respiratory treatment, case management will follow
[2019-09-08 12:00] VITALS: BP 121/77
--- NOTE | 2019-09-08 13:28 | NUR ---
Dr. Hoyos notified of critical value finding on echo. Nurse notified
--- NOTE | 2019-09-08 13:33 | NUR ---
DR SELF NOTIFIED THAT QASIM THE MANAGER UNDERWRITING CALLED DR JONES WITH [facility] REGARDING SEVERE MR, ACUTE FLAIL MITRAL LEAFLET AND AN EF OF APPOXIMATELY 35%. SHE WAS REQUESTING DR NJ'S INTERPRETATION.
[2019-09-08 16:00] VITALS: BP 123/89
--- NOTE | 2019-09-08 18:13 | NUR ---
DULCOLAX GIVEN FOR COMPALINTS OF CONSTIPATION. WILL MONITOR.
[2019-09-08 20:00] VITALS: BP 115/73
[2019-09-09] VITALS: BP 132/75
--- NOTE | 2019-09-09 00:35 | NUR ---
PT AGREEING TO WEAR BIPAP AT THIS TIME. RESPIRATORY AT BEDSIDE TO PUT PT ON BIPAP. CONTINOUS POX APPLIED PER ORDER. WILL MONITOR. CALL LIGHT IN REACH.
--- NOTE | 2019-09-09 01:38 | NUR ---
PT TAKEN OFF BIPAP AT THIS TIME PER REQUEST. O2 APPLIED AT 2L NC. CONTINUOUS POX REMOVED PT NO LONGER ON BIPAP.
[2019-09-09 06:42] LABS: HEMOGLOBIN 9.5 g/dl (12.0-16.0); MEAN CELL VOLUME 84.5 fl (81.0-99.0); MEAN CORPUSCULAR HGB 25.9 pg (27.0-31.0); MEAN CORPUSCULAR HGB CONC 30.6 g/dl (33.0-37.0); MEAN PLATELET VOLUME 9.5 fl (9.6-12.3); NUCLEATED RED BLOOD CELL 0.5 % (0.0-0.0); PLATELET COUNT AUTOMATED 199 10*3/uL (130-400); RED BLOOD COUNT 3.67 10*6/uL (4.10-5.10); RED CELL DISTRI WIDTH 14.7 % (0-14.5); WHITE BLOOD COUNT 6.4 10*3/uL (4.8-10.8)
--- NOTE | 2019-09-09 06:46 | NUR ---
HERE TO SEE PT.
[2019-09-09 06:50] LABS: CREATININE 2.63 mg/dL (0.55-1.02); POTASSIUM 4.6 mmol/L (3.5-5.1)
[2019-09-09 07:54] LABS: OVALOCYTES FEW; PLATELET SUFFICIENCY NORMAL (NORMAL); POLYCHROMASIA SLIGHT; TOTAL CELLS COUNTED 100 #CELLS
[2019-09-09 08:00] VITALS: BP 122/74
--- NOTE | 2019-09-09 08:15 | NUR ---
PT FININSHING IN [place], [facility] OX 94-95% ON 1L/M NC. PT. WALKING TO BED SAT 93%. O2 APPLLIED TO PT AT 2L/M PT C/O SOB. RN NOTIFIED. NOTIFIED.
--- NOTE | 2019-09-09 08:24 | NUR ---
Occupational Therapy evaluation completed on 4 with full eval to follow. Precautions include fall risk,new oxygen use, SOB w/modere exertion, low complexity level 04440 via chart review, testing and evaluation. Patient says she could go stay with her daughter for as long as needed instead of home alone upon d/c. OTR recommended this plan and OT per pOC and home health SN,OT,PT upon d/c. Thank you. Justyna Arita OTR/l
--- NOTE | 2019-09-09 11:25 | NUR ---
PHYSICAL THERAPY [place] completed low complexity [id number]. PT to work on trasfers,strengthing, amb and endurance/safety. Pt would benefit from further therap/SNF at discharge as she lives alone and states "I can't manage on my own right now" pt did discuss about moving in w her niece Sussy, but nothing definitive at this point. Pt also states MD in discussion w transfering her to [facility] for further cardiac work up. Will follow and cont to assess, thank you. Amelia Whitley PT
[2019-09-09 12:00] VITALS: BP 129/72
--- NOTE | 2019-09-09 12:00 | NUR ---
OT NOTE Pt was seen this P.M. 1:1 for 15 minute OT session. Upon arrival pt was supine in bed. Pt identified by name and and had no complaints at this time. Pt presented to therapy with continuous 2L-O2 via NC which she remained on throughout entire session. Pt's resting SpO2 was 94%. Pt transferred supine to sit EOB with SBA. Pt completed multiple sit to stand transfers from bed level with [facility] PEDIATRIC REGISTERED NURSE. Challenged pt's static standing tolerance needed for increased I in self care tasks and functional trasnfers. Pt was able to tolerate aprox 60 seconds at a time before sitting due to fatigue, SpO2 still within functional limits. Pt then requested to get back into bed and rest due to fatigue. Pt transferred sit to supine with SBA, there she was left with call light in hand, tray table in place, and bed alarm activated for safety. Continue with rec D/C plan to home with home health. GREGORIO Mckinley/Salvador
--- NOTE | 2019-09-09 13:45 | NUR ---
report called to [facility] questions answered. pt is aware of transport attempted to call family member andrea an but did not answer pt updated
--- NOTE | 2019-09-09 14:06 | NUR ---
PT LEFT VIA AMBULANCE TO GO TO [facility] HEART MONITOR TAKEN OFF IV LEFT IN PT STABLE @ DISCHARGE
--- NOTE | 2019-09-09 15:26 | NUR ---
OCCUPATIONAL THERAPY CO-SIGN I approve of the Occupational Therapy notes written above. Mayda Louie, OTR/L
--- NOTE | 2019-09-15 07:14 | NUR ---
OCCUPATIONAL THERAPY CO-SIGN I approve of the Occupational Therapy notes written above. CATRACHITO MARQUEZ OTR/Salvador
== END 2019-09-09 14:06 | disposition short-term general hospital (02) | DRG 871 ==
LOC: ED 16:45 → EDHOLD 18:27 → 4E 18:27
PROVIDERS: Emergency Medicine; Hospitalist; Internal Medicine; Internal Medicine Critical Care Medicine; ADMIT Internal Medicine
DX: A41.9 Sepsis, unspecified organism (principal); J18.9 Pneumonia, unspecified organism; J96.01 Acute respiratory failure with hypoxia; I21.A1 Myocardial infarction type 2; I50.23 Acute on chronic systolic (congestive) heart failure; E44.0 Moderate protein-calorie malnutrition; I13.0 Hypertensive heart and chronic kidney disease with heart failure and stage 1 through stage 4 chronic kidney disease, or unspecified chronic kidney disease; N17.9 Acute kidney failure, unspecified; I42.9 Cardiomyopathy, unspecified; E87.4 Mixed disorder of acid-base balance; J44.1 Chronic obstructive pulmonary disease with (acute) exacerbation; J44.0 Chronic obstructive pulmonary disease with (acute) lower respiratory infection; Z68.1 Body mass index [BMI] 19.9 or less, adult; J98.11 Atelectasis; I27.20 Pulmonary hypertension, unspecified; E87.8 Other disorders of electrolyte and fluid balance, not elsewhere classified; N18.3 Chronic kidney disease, stage 3 (moderate); D50.9 Iron deficiency anemia, unspecified; I25.10 Atherosclerotic heart disease of native coronary artery without angina pectoris; F17.210 Nicotine dependence, cigarettes, uncomplicated; E55.9 Vitamin D deficiency, unspecified; I34.0 Nonrheumatic mitral (valve) insufficiency; R65.20 Severe sepsis without septic shock; Z71.6 Tobacco abuse counseling; Z88.0 Allergy status to penicillin; Z88.2 Allergy status to sulfonamides; Z91.012 Allergy to eggs; Z98.891 History of uterine scar from previous surgery; Z95.0 Presence of cardiac pacemaker; Z82.49 Family history of ischemic heart disease and other diseases of the circulatory system; Z82.5 Family history of asthma and other chronic lower respiratory diseases; I25.2 Old myocardial infarction; Z88.8 Allergy status to other drugs, medicaments and biological substances; Z91.19 Patient's noncompliance with other medical treatment and regimen

== ENCOUNTER 2020-02-01 14:09 | Inpatient (IN) | payer OTHER ==
[2020-02-01] VITALS (7 sets, daily range): BP systolic 109–143; BP diastolic 67–86
[~2020-02-01] VITALS: Ht 152.4 cm; Wt 48.6 kg
--- NOTE | 2020-02-01 14:27 | NUR ---
PT STATES SHE IS OUT OF "WATER PILLS" FOR PAST 3-4 DAYS
[2020-02-01 14:45] LABS: BASO % 0.6 % (0.0-1.0); EOS # 0.1 10*3/uL (0.0-0.4); EOS % 0.9 % (1.0-4.0); HEMATOCRIT 34.8 % (37.0-47.0); LYMPH # 1.1 10*3/uL (1.3-4.4); MEAN CELL VOLUME 82.9 fl (81.0-99.0); MEAN CORPUSCULAR HGB CONC 31.3 g/dl (33.0-37.0); MEAN PLATELET VOLUME 9.1 fl (9.6-12.3); MONO # 0.5 10*3/uL (0.1-1.0); MONO % 8.6 % (3.0-9.0); NEUT # 3.7 10*3/uL (2.3-7.9); NEUT % 68.7 % (47.0-73.0); PLATELET COUNT AUTOMATED 183 10*3/uL (130-400); RED CELL DISTRI WIDTH 15.5 % (0-14.5); WHITE BLOOD COUNT 5.4 10*3/uL (4.8-10.8)
--- NOTE | 2020-02-01 14:53 | NUR ---
PT RESTING IN BED IN HIGH FOWLERS ON 2LPM O2 VIA NASAL CANNULA PT STATES SHE IS FEELING BETTER AT THIS TIME RESP AT 32 / MIN DOWN FROM 40 MIN UPON ARRIVAL PULSE OX NOW 98%
[2020-02-01 14:56] LABS: ACT PARTIAL THROMBO TIME 24.4 SECONDS (20.0-32.1); INTERNATIONAL NORM RATIO 0.9 (2.0-3.5)
[2020-02-01 15:32] LABS: ALBUMIN 3.2 gm/dl (3.1-4.5); CREATININE 1.82 mg/dL (0.55-1.02); POTASSIUM 4.6 mmol/L (3.5-5.1); TOTAL PROTEIN 6.9 gm/dL (6.4-8.2)
[2020-02-01 16:00] LABS: TROPONIN I 0.503 ng/ml (<0.045)
--- NOTE | 2020-02-01 17:10 | NUR ---
PT STATES SHE IS FEELING BETTERSINCE BREATHING TX ENROUTE AND O2 WHILE HERE IN ER PT WITH NOTED DECREASE IN RESP WITH DECREASED RESP EFFORT PT HAS NO REQUESTS AT THIS TIME
--- NOTE | 2020-02-01 17:26 | NUR ---
PT SLEEPING IN BED NO SIGN OF DISTRESS PULSE OX 98% ON 2LPM O2 VIA NC RESP 24
--- NOTE | 2020-02-01 18:22 | NUR ---
PT TAKES LISINAPRIL ASPRIN WATER PILL AND CHOLESTOROL PILL PT STATES HER DR KNOWS THEM ALL
--- NOTE | 2020-02-01 19:03 | NUR ---
NURSE TO NURSE REPORT GIVEN TO THIS RN.PT AWAITING ROOM ASSIGNMENT FOR ADMISSION.
--- NOTE | 2020-02-01 20:51 | NUR ---
DR ALCALA CONTACTED AND NOTIFIED OF TROPONIN LEVEL 0.519 AND ADVISED TO NOT GIVE BOLUS OF HEPARIN DUE TO PTT 24.4.
--- NOTE | 2020-02-01 21:16 | NUR ---
PER DR NJ VERBAL ORDER, ORDER FOR LOPRESSOR 12.5MG NOW TO BE DISCONTINUED. DR NJ VERBAL ORDER FOR LOPRESSOR 25MG PO NOW AND LOPRESSOR 25MG PO BID.VERBAL ORDER READ BACK AND VERIFIED PER KATARINA LUNDBERG AND KATARINA SEGOVIA. DR NJ REPORTS SOMEONE WILL BE IN TO SEE PATIENT IN THE AM.
--- NOTE | 2020-02-01 21:40 | NUR ---
PT ADMITTED AND AWAITING TRANSFER TO UNIT, UNIT NURSE CONTACTED AND WILL RETURN CALL.
--- NOTE | 2020-02-01 23:00 | NUR ---
A 64, admitted to , under the services of DILCIA Grullon DO with a diagnosis of ACUTE HEART FAILURE. Chief complaint is SOB. Patient arrived via stretcher from ER. Monitor applied. Initial assessment completed. Vital signs taken and recorded. DILCIA GRULLON DO notified of admission to the unit. Orders received. See assessment for past medical history, medications and allergies. Patient and/or family oriented to unit. [facility]LO[facility] visitation policy reviewed. Clothing/patient valuable form completed. JULIANA LAGOS
[2020-02-01] MEDS ORDERED: ATORVASTATIN CA80 M1 PO (23:25)
[2020-02-01] MEDS ORDERED: ASPIRIN ADULT L81 M2 PO (23:25)
--- NOTE | 2020-02-01 23:25 | NUR ---
PER RUTH FROM ER. DR. NJ MADE AWARE OF CONSULT. STATED SOMEONE WOULD BE IN TO SEE PATIENT TOMORROW.
[2020-02-01] MEDS ORDERED: LISINOPRIL5 MG PO (23:26)
[2020-02-01] MEDS ORDERED: VENTOLIN 02.5 MG/3 M INH (23:26)
[2020-02-01] MEDS ORDERED: FUROSEMIDE40 MG PO (23:26)
[2020-02-02] VITALS: BP 116/70
--- NOTE | 2020-02-02 00:09 | NUR ---
DR. ALCALA NOTIFIED PATIENTS MED REC UP TO DATE
--- NOTE | 2020-02-02 00:25 | NUR ---
PATIENT RESTING IN BED. VOICES NO COMPLAINTS. HEPARIN DRIP INFUSING. RESPIRATIONS EASY, NON LABORED. BED IN LOWEST POSITION,CALL LIGHT WITHIN REACH. WILL CONTINUE TO MONITOR.
[2020-02-02 06:10] LABS: BASO % 0.7 % (0.0-1.0); EOS # 0.1 10*3/uL (0.0-0.4); LYMPH # 1.6 10*3/uL (1.3-4.4); LYMPH % 34.4 % (27.0-41.0); MEAN CELL VOLUME 82.3 fl (81.0-99.0); MEAN CORPUSCULAR HGB 25.9 pg (27.0-31.0); MEAN CORPUSCULAR HGB CONC 31.5 g/dl (33.0-37.0); MONO # 0.4 10*3/uL (0.1-1.0); MONO % 8.2 % (3.0-9.0); NEUT # 2.5 10*3/uL (2.3-7.9); NEUT % 54.5 % (47.0-73.0); PLATELET COUNT AUTOMATED 188 10*3/uL (130-400); RED BLOOD COUNT 4.01 10*6/uL (4.10-5.10); RED CELL DISTRI WIDTH 15.3 % (0-14.5); WHITE BLOOD COUNT 4.5 10*3/uL (4.8-10.8)
[2020-02-02 06:21] LABS: INTERNATIONAL NORM RATIO 0.9 (2.0-3.5)
[2020-02-02 06:22] LABS: ALBUMIN 3.2 gm/dl (3.1-4.5)
[2020-02-02 06:33] LABS: CREATININE 1.92 mg/dL (0.55-1.02); PHOSPHOROUS 4.4 mg/dL (2.5-4.9); POTASSIUM 3.6 mmol/L (3.5-5.1); THYROID STIM HORMONE (HS) 4.51 uIU/ml (0.358-4.75); TOTAL PROTEIN 6.6 gm/dL (6.4-8.2)
[2020-02-02 06:54] LABS: VITAMIN D, 25-HYDROXY 21.3 ng/mL (30-100)
[2020-02-02 08:00] VITALS: BP 117/60
--- NOTE | 2020-02-02 09:00 | NUR ---
Assistant Manager Trainee in to talk to patient. Patient states lives at HOME with ALONE. There are no steps in the home. Physician: cindy [facility]acy: [facility] Home health services: none Patient's level of ADLs: INDEPENDENT Patient has working utilities: all working DME: nebulizer Follow-up physician's appointment after d/c: will be made by hospitalist nurse director upon discharge Does patient want to access PORTAL?: no Discharge plan discussed with patient she states she lives at home alone, she is independent in adls and ambulation. she has a nebulizer but no home oxygen, she states she does not drive but has a friend that takes her to doctors appointments and to get groceries, or she uses the transportation van at her apartment complex. she states she will return home when medically stable. discussed with her VNA and educated her on their services. she declines any home services at this time, case management will follow. RALPH SWARTZ
--- NOTE | 2020-02-02 10:27 | NUR ---
HEPARIN DRIP INCREASED TO 16UNITS/KG/HR PER POLICY
--- NOTE | 2020-02-02 11:00 | NUR ---
Occupational therapy orders received and chart reviewed. Patient reported independent ADLs, transfers, and mobility in the room. She stated she has independently been completing dressing, toileting, and grooming without LOBs. Patient declined further OT services. Screen only completed this date and OT orders will be discharged at this time. Thank you. Mayda Louie, OTR/L
--- NOTE | 2020-02-02 11:10 | NUR ---
PHYSICAL THERAPY PT order received. Patient screen completed. Patient self reports that she has been independent in her room this stay with no LOB or falls. Patient denies need for skilled PT services at this time. Discharge PT order. Thank you. Lidia Eubanks,PT,DPT
[2020-02-02 12:00] VITALS: BP 130/67
[2020-02-02 16:00] VITALS: BP 120/60
[2020-02-02] MEDS ORDERED: LOPRESSOR25 MG PO (19:55)
[2020-02-02] MEDS ORDERED: CLOPIDOGREL75 MG PO (19:55)
[2020-02-02 20:00] VITALS: BP 96/49
--- NOTE | 2020-02-02 23:05 | NUR ---
PATIENT BOTH IV SITES BAD. 2 NEW IVS STARTED, ONE IN LEFT WRIST AND OTHER IN RIGHT. WILL CONTINUE TO [facility].
[2020-02-03] VITALS: BP 117/65
--- NOTE | 2020-02-03 | NUR ---
HEPARIN DRIP INCREASED TO 18UNIT/KG/HR OR 8.9ML/HR PER PROTOCOL. WILL CONTINUE TO MONITOR.
[2020-02-03 05:00] VITALS: BP 109/61
--- NOTE | 2020-02-03 05:22 | NUR ---
PATIENTS HEART MONITOR REMOVED
--- NOTE | 2020-02-03 05:31 | NUR ---
[facility] HERE TO PICK PATIENT UP. ALL PATIENTS BELONGINGS WITH PATIENT INCLUDING CELLPHONE AND PROPERTY AND SUPPLY OFFICER IN BAG.
--- NOTE | 2020-02-03 05:37 | NUR ---
ATTEMPTED TO GIVE REPORT TO UHI FROM [facility]. STATED HE WOULD CALL BACK
--- NOTE | 2020-02-03 05:57 | NUR ---
REPORT GAVE TO HUI LANDIS VAIL
[2020-02-03 06:08] LABS: BASO % 0.7 % (0.0-1.0); EOS # 0.1 10*3/uL (0.0-0.4); EOS % 2.3 % (1.0-4.0); HEMATOCRIT 32.9 % (37.0-47.0); LYMPH # 1.5 10*3/uL (1.3-4.4); LYMPH % 34.5 % (27.0-41.0); MEAN CELL VOLUME 80.8 fl (81.0-99.0); MEAN CORPUSCULAR HGB 25.8 pg (27.0-31.0); MEAN CORPUSCULAR HGB CONC 31.9 g/dl (33.0-37.0); MEAN PLATELET VOLUME 10.1 fl (9.6-12.3); MONO # 0.4 10*3/uL (0.1-1.0); MONO % 9.5 % (3.0-9.0); NEUT # 2.3 10*3/uL (2.3-7.9); NEUT % 52.8 % (47.0-73.0); PLATELET COUNT AUTOMATED 191 10*3/uL (130-400); RED BLOOD COUNT 4.07 10*6/uL (4.10-5.10); RED CELL DISTRI WIDTH 15.2 % (0-14.5); WHITE BLOOD COUNT 4.3 10*3/uL (4.8-10.8)
[2020-02-03 06:29] LABS: CREATININE 2.12 mg/dL (0.55-1.02); POTASSIUM 4.1 mmol/L (3.5-5.1)
== END 2020-02-03 05:31 | disposition other institution (70) | DRG 280 ==
LOC: ED 14:09 → EDHOLD 18:59 → 4E 18:59
PROVIDERS: Emergency Medicine; Family Medicine; Internal Medicine; ADMIT Internal Medicine
DX: I21.4 Non-ST elevation (NSTEMI) myocardial infarction (principal); I50.23 Acute on chronic systolic (congestive) heart failure; N17.0 Acute kidney failure with tubular necrosis; R65.10 Systemic inflammatory response syndrome (SIRS) of non-infectious origin without acute organ dysfunction; I13.0 Hypertensive heart and chronic kidney disease with heart failure and stage 1 through stage 4 chronic kidney disease, or unspecified chronic kidney disease; N18.3 Chronic kidney disease, stage 3 (moderate); F17.210 Nicotine dependence, cigarettes, uncomplicated; E78.5 Hyperlipidemia, unspecified; I34.0 Nonrheumatic mitral (valve) insufficiency; R73.9 Hyperglycemia, unspecified; D64.9 Anemia, unspecified; I25.2 Old myocardial infarction; Z95.0 Presence of cardiac pacemaker; Z82.49 Family history of ischemic heart disease and other diseases of the circulatory system; Z82.5 Family history of asthma and other chronic lower respiratory diseases; Z88.0 Allergy status to penicillin; Z88.2 Allergy status to sulfonamides; Z79.899 Other long term (current) drug therapy; Z88.1 Allergy status to other antibiotic agents; Z79.82 Long term (current) use of aspirin; Z91.19 Patient's noncompliance with other medical treatment and regimen; Z91.012 Allergy to eggs

== ENCOUNTER 2021-05-04 13:04 | Inpatient (IN) | payer OTHER ==
[~2021-05-04] VITALS: Ht 157.4 cm; Wt 52.6 kg
[~2021-05-04 13:04] MED LIST changes: +ASPIRIN ADULT L81 M2 PO; +ATORVASTATIN CA80 M1 PO; +CLOPIDOGREL75 MG PO; +FUROSEMIDE40 MG PO; +LOPRESSOR25 MG PO; +VENTOLIN 02.5 MG/3 M INH
[2021-05-04 13:07] VITALS: BP 123/87
[2021-05-04 13:35] LABS: BASO % 0.5 % (0.0-1.0); EOS % 0.5 % (1.0-4.0); HEMATOCRIT 39.1 % (37.0-47.0); LYMPH # 0.9 10*3/uL (1.3-4.4); LYMPH % 22.4 % (27.0-41.0); MEAN CELL VOLUME 82.3 fl (81.0-99.0); MEAN CORPUSCULAR HGB 25.9 pg (27.0-31.0); MEAN CORPUSCULAR HGB CONC 31.5 g/dl (33.0-37.0); MEAN PLATELET VOLUME 9.1 fl (9.6-12.3); MONO # 0.2 10*3/uL (0.1-1.0); MONO % 5.4 % (3.0-9.0); NEUT # 2.9 10*3/uL (2.3-7.9); PLATELET COUNT AUTOMATED 180 10*3/uL (130-400); RED BLOOD COUNT 4.75 10*6/uL (4.10-5.10); RED CELL DISTRI WIDTH 14.6 % (0-14.5); WHITE BLOOD COUNT 4.1 10*3/uL (4.8-10.8)
[2021-05-04 13:42] VITALS: BP 122/89
[2021-05-04 13:52] LABS: ALBUMIN 3.4 gm/dl (3.1-4.5); CREATININE 1.74 mg/dL (0.55-1.02); POTASSIUM 4.4 mmol/L (3.5-5.1); TOTAL PROTEIN 7.1 gm/dL (6.4-8.2)
[2021-05-04 13:56] LABS: TROPONIN I 0.584 ng/ml (<0.045)
[2021-05-04 15:50] VITALS: BP 116/77
[2021-05-04 16:50] VITALS: BP 139/89
[2021-05-04 20:00] VITALS: BP 126/76
[2021-05-05] VITALS: BP 127/78
[2021-05-05 06:14] LABS: BASO % 0.5 % (0.0-1.0); EOS % 0.3 % (1.0-4.0); HEMATOCRIT 38.9 % (37.0-47.0); LYMPH # 0.6 10*3/uL (1.3-4.4); LYMPH % 16.5 % (27.0-41.0); MEAN CELL VOLUME 81.4 fl (81.0-99.0); MEAN CORPUSCULAR HGB 25.5 pg (27.0-31.0); MEAN CORPUSCULAR HGB CONC 31.4 g/dl (33.0-37.0); MEAN PLATELET VOLUME 9.4 fl (9.6-12.3); MONO # 0.1 10*3/uL (0.1-1.0); MONO % 1.9 % (3.0-9.0); NEUT % 80.5 % (47.0-73.0); PLATELET COUNT AUTOMATED 178 10*3/uL (130-400); RED BLOOD COUNT 4.78 10*6/uL (4.10-5.10); RED CELL DISTRI WIDTH 14.2 % (0-14.5); WHITE BLOOD COUNT 3.8 10*3/uL (4.8-10.8)
[2021-05-05 06:17] LABS: ALBUMIN 3.2 gm/dl (3.1-4.5); POTASSIUM 4.4 mmol/L (3.5-5.1)
[2021-05-05 06:27] LABS: CREATININE 1.97 mg/dL (0.55-1.02); FREE T4 1.12 ng/dl (0.76-1.46); THYROID STIM HORMONE (HS) 1.86 uIU/ml (0.358-4.75)
[2021-05-05 06:30] LABS: ACT PARTIAL THROMBO TIME 46.2 SECONDS (20.0-32.1)
[2021-05-05 07:24] VITALS: BP 116/72
[2021-05-05 07:38] LABS: VITAMIN D, 25-HYDROXY 29.9 ng/mL (30-100)
[2021-05-05 10:56] VITALS: BP 105/58
[2021-05-05] MEDS ORDERED: ATORVASTATIN CA40 M1 PO (14:45)
[2021-05-05 16:25] VITALS: BP 115/69
[2021-05-05 20:00] VITALS: BP 118/69
== END 2021-05-05 20:59 | disposition short-term general hospital (02) | DRG 291 ==
LOC: ED 13:04 → EDHOLD 15:14 → 5E 15:14
PROVIDERS: Emergency Medicine; Social Worker Clinical; ADMIT Student in an Organized Health Care Education/Training Program; ATTEND Student in an Organized Health Care Education/Training Program
DX: I13.0 Hypertensive heart and chronic kidney disease with heart failure and stage 1 through stage 4 chronic kidney disease, or unspecified chronic kidney disease (principal); N17.0 Acute kidney failure with tubular necrosis; R65.11 Systemic inflammatory response syndrome (SIRS) of non-infectious origin with acute organ dysfunction; I50.23 Acute on chronic systolic (congestive) heart failure; E87.1 Hypo-osmolality and hyponatremia; E87.8 Other disorders of electrolyte and fluid balance, not elsewhere classified; R61 Generalized hyperhidrosis; E83.41 Hypermagnesemia; J43.9 Emphysema, unspecified; I43 Cardiomyopathy in diseases classified elsewhere; I34.0 Nonrheumatic mitral (valve) insufficiency; N18.32 Chronic kidney disease, stage 3b; Z87.74 Personal history of (corrected) congenital malformations of heart and circulatory system; Z95.0 Presence of cardiac pacemaker; I25.2 Old myocardial infarction; Z88.0 Allergy status to penicillin; Z88.2 Allergy status to sulfonamides; Z88.1 Allergy status to other antibiotic agents; Z82.49 Family history of ischemic heart disease and other diseases of the circulatory system; Z82.5 Family history of asthma and other chronic lower respiratory diseases; Z79.82 Long term (current) use of aspirin

== ENCOUNTER 2021-05-29 13:19 | Inpatient (IN) | payer OTHER ==
[~2021-05-29] VITALS: Ht 154.9 cm; Wt 50.1 kg
[2021-05-29] VITALS (16 sets, daily range): BP systolic 78–123; BP diastolic 40–96
[~2021-05-29 13:19] MED LIST changes: +ATORVASTATIN CA40 M1 PO
[2021-05-29] MEDS ORDERED: TOPROL XL25 MG PO (13:48)
[2021-05-29 14:18] LABS: MEAN CELL VOLUME 83.8 fl (81.0-99.0); MEAN CORPUSCULAR HGB 26.1 pg (27.0-31.0); MEAN CORPUSCULAR HGB CONC 31.2 g/dl (33.0-37.0); MEAN PLATELET VOLUME 8.9 fl (9.6-12.3); PLATELET COUNT AUTOMATED 251 10*3/uL (130-400); RED BLOOD COUNT 2.41 10*6/uL (4.10-5.10); RED CELL DISTRI WIDTH 15.2 % (0-14.5); WHITE BLOOD COUNT 6.5 10*3/uL (4.8-10.8)
[2021-05-29 14:25] LABS: HEMATOCRIT 20.2 % (37.0-47.0)
[2021-05-29 14:35] LABS: CREATININE 2.19 mg/dL (0.55-1.02); POTASSIUM 4.5 mmol/L (3.5-5.1); TOTAL PROTEIN 6.4 gm/dL (6.4-8.2)
[2021-05-29 14:36] LABS: BASOPHILS 1 % (0-1); PLATELET SUFFICIENCY NORMAL (NORMAL); TOTAL CELLS COUNTED 100 #CELLS
[2021-05-29 14:37] LABS: BURR CELLS FEW; OVALOCYTES MODERATE
[2021-05-29 14:43] LABS: TROPONIN I 0.209 ng/ml (<0.045)
[2021-05-29 21:34] LABS: BILIRUBIN Negative (Negative); BLOOD 1+ (Negative); CLARITY Clear (Clear); COLOR Yellow (Yellow); GLUCOSE Negative (Negative); KETONE Negative (Negative); LEUKO ESTERASE 2+ (Negative); NITRITE Negative (Negative); UROBILINOGEN 0.2 E.U./dl (0.0-1.0)
[2021-05-29 22:02] LABS: BACTERIA TRACE
[2021-05-29 22:09] LABS: MEAN CORPUSCULAR HGB 27.9 pg (27.0-31.0); MEAN CORPUSCULAR HGB CONC 32.5 g/dl (33.0-37.0); MEAN PLATELET VOLUME 8.8 fl (9.6-12.3); PLATELET COUNT AUTOMATED 197 10*3/uL (130-400); RED BLOOD COUNT 2.29 10*6/uL (4.10-5.10); RED CELL DISTRI WIDTH 16.1 % (0-14.5)
[2021-05-29 22:36] LABS: HEMATOCRIT 19.7 % (37.0-47.0)
[2021-05-29 22:41] LABS: MICROCYTOSIS SLIGHT; PLATELET SUFFICIENCY NORMAL (NORMAL); TOTAL CELLS COUNTED 100 #CELLS
[2021-05-29 22:42] LABS: OVALOCYTES FEW
[2021-05-30] VITALS (12 sets, daily range): BP systolic 72–110; BP diastolic 38–56
[2021-05-30 04:45] LABS: BASO % 0.6 % (0.0-1.0); EOS % 0.9 % (1.0-4.0); HEMATOCRIT 24.1 % (37.0-47.0); LYMPH # 1.2 10*3/uL (1.3-4.4); LYMPH % 25.4 % (27.0-41.0); MEAN CELL VOLUME 86.1 fl (81.0-99.0); MEAN CORPUSCULAR HGB 28.6 pg (27.0-31.0); MEAN CORPUSCULAR HGB CONC 33.2 g/dl (33.0-37.0); MEAN PLATELET VOLUME 8.6 fl (9.6-12.3); MONO # 0.4 10*3/uL (0.1-1.0); MONO % 8.5 % (3.0-9.0); NEUT % 63.7 % (47.0-73.0); NUCLEATED RED BLOOD CELL 0.4 % (0.0-0.0); PLATELET COUNT AUTOMATED 173 10*3/uL (130-400); RED CELL DISTRI WIDTH 14.9 % (0-14.5); WHITE BLOOD COUNT 4.7 10*3/uL (4.8-10.8)
[2021-05-30 05:14] LABS: ALBUMIN 2.5 gm/dl (3.1-4.5); CREATININE 2.03 mg/dL (0.55-1.02); POTASSIUM 4.2 mmol/L (3.5-5.1); TOTAL PROTEIN 5.3 gm/dL (6.4-8.2)
[2021-05-31] VITALS (24 sets, daily range): BP systolic 54–140; BP diastolic 32–82
[2021-05-31 06:58] LABS: MEAN CORPUSCULAR HGB 28.4 pg (27.0-31.0); MEAN CORPUSCULAR HGB CONC 31.2 g/dl (33.0-37.0); MEAN PLATELET VOLUME 8.6 fl (9.6-12.3); PLATELET COUNT AUTOMATED 159 10*3/uL (130-400); RED BLOOD COUNT 2.08 10*6/uL (4.10-5.10); RED CELL DISTRI WIDTH 16.3 % (0-14.5); WHITE BLOOD COUNT 2.9 10*3/uL (4.8-10.8)
[2021-05-31 07:00] LABS: MEAN CELL VOLUME 90.9 fl (81.0-99.0)
[2021-05-31 07:04] LABS: HEMATOCRIT 18.9 % (37.0-47.0)
[2021-05-31 07:07] LABS: ALBUMIN 2.5 gm/dl (3.1-4.5); CREATININE 1.97 mg/dL (0.55-1.02); TOTAL PROTEIN 5.2 gm/dL (6.4-8.2)
[2021-05-31 07:44] LABS: BASOPHILS 2 % (0-1); OVALOCYTES FEW; PLATELET SUFFICIENCY NORMAL (NORMAL); TOTAL CELLS COUNTED 100 #CELLS
[2021-05-31 16:24] LABS: BASO % 0.5 % (0.0-1.0); HEMATOCRIT 29.4 % (37.0-47.0); LYMPH # 0.5 10*3/uL (1.3-4.4); LYMPH % 12.4 % (27.0-41.0); MEAN CORPUSCULAR HGB 28.2 pg (27.0-31.0); MEAN CORPUSCULAR HGB CONC 32.7 g/dl (33.0-37.0); MEAN PLATELET VOLUME 8.9 fl (9.6-12.3); MONO # 0.2 10*3/uL (0.1-1.0); MONO % 4.9 % (3.0-9.0); NEUT # 3.1 10*3/uL (2.3-7.9); NEUT % 80.7 % (47.0-73.0); NUCLEATED RED BLOOD CELL 0.5 % (0.0-0.0); PLATELET COUNT AUTOMATED 151 10*3/uL (130-400); RED BLOOD COUNT 3.41 10*6/uL (4.10-5.10); RED CELL DISTRI WIDTH 15.9 % (0-14.5); WHITE BLOOD COUNT 3.9 10*3/uL (4.8-10.8)
[2021-05-31 16:25] LABS: MEAN CELL VOLUME 86.2 fl (81.0-99.0)
[2021-06-01] VITALS: BP 117/57
[2021-06-01 04:00] VITALS: BP 113/50
[2021-06-01 05:58] LABS: ALBUMIN 2.4 gm/dl (3.1-4.5); CREATININE 1.7 mg/dL (0.55-1.02); POTASSIUM 4.3 mmol/L (3.5-5.1); TOTAL PROTEIN 5.2 gm/dL (6.4-8.2)
[2021-06-01 06:22] LABS: BASO % 0.4 % (0.0-1.0); EOS % 0.7 % (1.0-4.0); HEMATOCRIT 30.2 % (37.0-47.0); LYMPH # 0.7 10*3/uL (1.3-4.4); LYMPH % 23.9 % (27.0-41.0); MEAN CELL VOLUME 88.3 fl (81.0-99.0); MEAN CORPUSCULAR HGB 27.8 pg (27.0-31.0); MEAN CORPUSCULAR HGB CONC 31.5 g/dl (33.0-37.0); MEAN PLATELET VOLUME 8.9 fl (9.6-12.3); MONO # 0.3 10*3/uL (0.1-1.0); MONO % 10.9 % (3.0-9.0); NEUT # 1.8 10*3/uL (2.3-7.9); NEUT % 63.4 % (47.0-73.0); PLATELET COUNT AUTOMATED 166 10*3/uL (130-400); RED BLOOD COUNT 3.42 10*6/uL (4.10-5.10); RED CELL DISTRI WIDTH 17.2 % (0-14.5); WHITE BLOOD COUNT 2.9 10*3/uL (4.8-10.8)
[2021-06-01 08:00] VITALS: BP 114/58
[2021-06-01 12:00] VITALS: BP 118/60
[2021-06-01 13:44] LABS: BASO % 0.3 % (0.0-1.0); EOS % 1.2 % (1.0-4.0); HEMATOCRIT 31.1 % (37.0-47.0); LYMPH # 0.6 10*3/uL (1.3-4.4); LYMPH % 18.6 % (27.0-41.0); MEAN CELL VOLUME 88.6 fl (81.0-99.0); MEAN CORPUSCULAR HGB 27.9 pg (27.0-31.0); MEAN CORPUSCULAR HGB CONC 31.5 g/dl (33.0-37.0); MEAN PLATELET VOLUME 8.7 fl (9.6-12.3); MONO # 0.3 10*3/uL (0.1-1.0); NEUT # 2.4 10*3/uL (2.3-7.9); NUCLEATED RED BLOOD CELL 0.6 % (0.0-0.0); PLATELET COUNT AUTOMATED 146 10*3/uL (130-400); RED BLOOD COUNT 3.51 10*6/uL (4.10-5.10); RED CELL DISTRI WIDTH 17.7 % (0-14.5); WHITE BLOOD COUNT 3.4 10*3/uL (4.8-10.8)
[2021-06-01 16:00] VITALS: BP 99/52
[2021-06-01 20:00] VITALS: BP 93/57
[2021-06-02] VITALS: BP 78/58
[2021-06-02 04:00] VITALS: BP 87/45
[2021-06-02 06:22] LABS: BASO % 0.6 % (0.0-1.0); EOS % 1.2 % (1.0-4.0); HEMATOCRIT 28.7 % (37.0-47.0); LYMPH # 0.7 10*3/uL (1.3-4.4); LYMPH % 20.2 % (27.0-41.0); MEAN CELL VOLUME 89.1 fl (81.0-99.0); MEAN CORPUSCULAR HGB CONC 31.4 g/dl (33.0-37.0); MEAN PLATELET VOLUME 9.2 fl (9.6-12.3); MONO # 0.3 10*3/uL (0.1-1.0); MONO % 8.9 % (3.0-9.0); NEUT # 2.2 10*3/uL (2.3-7.9); NEUT % 68.5 % (47.0-73.0); PLATELET COUNT AUTOMATED 160 10*3/uL (130-400); RED BLOOD COUNT 3.22 10*6/uL (4.10-5.10); RED CELL DISTRI WIDTH 17.2 % (0-14.5); WHITE BLOOD COUNT 3.3 10*3/uL (4.8-10.8)
[2021-06-02 06:25] LABS: ALBUMIN 2.4 gm/dl (3.1-4.5); POTASSIUM 4.2 mmol/L (3.5-5.1)
[2021-06-02 06:35] LABS: CREATININE 1.69 mg/dL (0.55-1.02); TOTAL PROTEIN 5.1 gm/dL (6.4-8.2)
[2021-06-02 08:00] VITALS: BP 103/52
[2021-06-02 12:00] VITALS: BP 107/59
[2021-06-02 16:00] VITALS: BP 107/56
[2021-06-02 20:00] VITALS: BP 94/60
[2021-06-03] VITALS: BP 97/64
[2021-06-03 06:12] LABS: BASO % 0.7 % (0.0-1.0); EOS # 0.1 10*3/uL (0.0-0.4); EOS % 2.1 % (1.0-4.0); HEMATOCRIT 29.7 % (37.0-47.0); LYMPH # 0.7 10*3/uL (1.3-4.4); LYMPH % 24.7 % (27.0-41.0); MEAN CELL VOLUME 87.1 fl (81.0-99.0); MEAN CORPUSCULAR HGB 28.4 pg (27.0-31.0); MEAN CORPUSCULAR HGB CONC 32.7 g/dl (33.0-37.0); MEAN PLATELET VOLUME 9.4 fl (9.6-12.3); MONO # 0.3 10*3/uL (0.1-1.0); MONO % 9.4 % (3.0-9.0); NEUT # 1.8 10*3/uL (2.3-7.9); NEUT % 62.8 % (47.0-73.0); PLATELET COUNT AUTOMATED 153 10*3/uL (130-400); RED BLOOD COUNT 3.41 10*6/uL (4.10-5.10); RED CELL DISTRI WIDTH 16.9 % (0-14.5); WHITE BLOOD COUNT 2.9 10*3/uL (4.8-10.8)
[2021-06-03 06:35] LABS: CREATININE 1.55 mg/dL (0.55-1.02); POTASSIUM 3.8 mmol/L (3.5-5.1)
[2021-06-03 08:00] VITALS: BP 103/54; BP 103/66
[2021-06-03 12:24] VITALS: BP 127/71
[2021-06-03 16:00] VITALS: BP 114/62
[2021-06-03 20:00] VITALS: BP 111/68
[2021-06-04] VITALS: BP 112/60
[2021-06-04 05:51] LABS: CREATININE 1.62 mg/dL (0.55-1.02); POTASSIUM 3.7 mmol/L (3.5-5.1)
[2021-06-04 06:09] LABS: BASO % 0.7 % (0.0-1.0); EOS # 0.1 10*3/uL (0.0-0.4); EOS % 1.7 % (1.0-4.0); HEMATOCRIT 27.2 % (37.0-47.0); LYMPH # 0.6 10*3/uL (1.3-4.4); LYMPH % 19.1 % (27.0-41.0); MEAN CELL VOLUME 86.3 fl (81.0-99.0); MEAN CORPUSCULAR HGB 27.9 pg (27.0-31.0); MEAN CORPUSCULAR HGB CONC 32.4 g/dl (33.0-37.0); MEAN PLATELET VOLUME 9.3 fl (9.6-12.3); MONO # 0.4 10*3/uL (0.1-1.0); MONO % 11.7 % (3.0-9.0); NEUT % 66.5 % (47.0-73.0); PLATELET COUNT AUTOMATED 159 10*3/uL (130-400); RED BLOOD COUNT 3.15 10*6/uL (4.10-5.10); RED CELL DISTRI WIDTH 16.9 % (0-14.5)
[2021-06-04 08:00] VITALS: BP 108/59
[2021-06-04 12:00] VITALS: BP 103/56
[2021-06-04 16:00] VITALS: BP 102/58
[2021-06-04 20:00] VITALS: BP 113/70
[2021-06-05] VITALS: BP 102/62
[2021-06-05 05:48] LABS: CREATININE 1.69 mg/dL (0.55-1.02); POTASSIUM 3.9 mmol/L (3.5-5.1)
[2021-06-05 06:20] LABS: BASO % 0.5 % (0.0-1.0); EOS # 0.1 10*3/uL (0.0-0.4); EOS % 1.2 % (1.0-4.0); HEMATOCRIT 29.1 % (37.0-47.0); LYMPH # 0.7 10*3/uL (1.3-4.4); LYMPH % 17.6 % (27.0-41.0); MEAN CELL VOLUME 87.7 fl (81.0-99.0); MEAN PLATELET VOLUME 9.8 fl (9.6-12.3); MONO # 0.4 10*3/uL (0.1-1.0); MONO % 8.6 % (3.0-9.0); NEUT # 2.9 10*3/uL (2.3-7.9); NEUT % 71.9 % (47.0-73.0); PLATELET COUNT AUTOMATED 171 10*3/uL (130-400); RED BLOOD COUNT 3.32 10*6/uL (4.10-5.10); WHITE BLOOD COUNT 4.1 10*3/uL (4.8-10.8)
[2021-06-05 08:00] VITALS: BP 109/69
[2021-06-05] MEDS ORDERED: Carafate1 GM PO (09:50)
[2021-06-05] MEDS ORDERED: PROTONIX40 MG PO (09:50)
== END 2021-06-05 12:59 | disposition home or self-care (01) | DRG 377 ==
LOC: ED 13:19 → 5E 15:26 → EDHOLD 15:26 → 5E 16:15 → ICCU 05-31 09:28 → 4E 06-02 14:16
PROVIDERS: Internal Medicine; Physician Assistant; Student in an Organized Health Care Education/Training Program; ADMIT Family Medicine; ATTEND Family Medicine
PROC: 30233N0 Transfusion of Autologous Red Blood Cells into Peripheral Vein, Percutaneous Approach (ICD-10-PCS; principal; 2021-05-29)
PROC: 0W3P8ZZ Control Bleeding in Gastrointestinal Tract, Via Natural or Artificial Opening Endoscopic (ICD-10-PCS; 2021-05-31)
DX: K26.4 Chronic or unspecified duodenal ulcer with hemorrhage (principal); E43 Unspecified severe protein-calorie malnutrition; N17.0 Acute kidney failure with tubular necrosis; I13.0 Hypertensive heart and chronic kidney disease with heart failure and stage 1 through stage 4 chronic kidney disease, or unspecified chronic kidney disease; I50.22 Chronic systolic (congestive) heart failure; N18.4 Chronic kidney disease, stage 4 (severe); K92.1 Melena; K57.31 Diverticulosis of large intestine without perforation or abscess with bleeding; I34.0 Nonrheumatic mitral (valve) insufficiency; D50.0 Iron deficiency anemia secondary to blood loss (chronic); R73.9 Hyperglycemia, unspecified; E83.41 Hypermagnesemia; F17.210 Nicotine dependence, cigarettes, uncomplicated; J44.9 Chronic obstructive pulmonary disease, unspecified; Z88.0 Allergy status to penicillin; Z88.2 Allergy status to sulfonamides; Z88.1 Allergy status to other antibiotic agents; Z88.8 Allergy status to other drugs, medicaments and biological substances; Z68.20 Body mass index [BMI] 20.0-20.9, adult; Z82.49 Family history of ischemic heart disease and other diseases of the circulatory system; Z82.5 Family history of asthma and other chronic lower respiratory diseases; Z79.82 Long term (current) use of aspirin; Z79.899 Other long term (current) drug therapy; I25.2 Old myocardial infarction

== ENCOUNTER 2022-04-09 23:00 | Inpatient (IN) | payer OTHER ==
[~2022-04-09] VITALS: Ht 157.5 cm; Wt 52.2 kg
[~2022-04-09 23:00] MED LIST changes: +Carafate1 GM PO; +PROTONIX40 MG PO; +TOPROL XL25 MG PO
[2022-04-09 23:02] VITALS: BP 114/68
[2022-04-09 23:23] LABS: BASO # 0.1 10*3/uL (0.0-0.1); BASO % 0.5 % (0.0-1.0); EOS % 0.2 % (1.0-4.0); HEMATOCRIT 37.6 % (37.0-47.0); LYMPH # 0.9 10*3/uL (1.3-4.4); LYMPH % 9.4 % (27.0-41.0); MEAN CELL VOLUME 77.5 fl (81.0-99.0); MEAN CORPUSCULAR HGB 23.1 pg (27.0-31.0); MEAN CORPUSCULAR HGB CONC 29.8 g/dl (33.0-37.0); MEAN PLATELET VOLUME 9.7 fl (9.6-12.3); MONO % 10.4 % (3.0-9.0); NEUT # 7.6 10*3/uL (2.3-7.9); NEUT % 79.2 % (47.0-73.0); PLATELET COUNT AUTOMATED 252 10*3/uL (130-400); RED BLOOD COUNT 4.85 10*6/uL (4.10-5.10); RED CELL DISTRI WIDTH 14.9 % (0-14.5); WHITE BLOOD COUNT 9.5 10*3/uL (4.8-10.8)
[2022-04-09 23:39] LABS: CREATININE 2.16 mg/dL (0.55-1.02); POTASSIUM 3.4 mmol/L (3.5-5.1); TOTAL PROTEIN 6.3 gm/dL (6.4-8.2)
[2022-04-10] VITALS (7 sets, daily range): BP systolic 103–124; BP diastolic 61–78
[2022-04-10 04:02] LABS: HEMATOCRIT 34.7 % (37.0-47.0); MEAN CELL VOLUME 77.6 fl (81.0-99.0); MEAN CORPUSCULAR HGB CONC 29.7 g/dl (33.0-37.0); MEAN PLATELET VOLUME 9.5 fl (9.6-12.3); PLATELET COUNT AUTOMATED 203 10*3/uL (130-400); RED BLOOD COUNT 4.47 10*6/uL (4.10-5.10); RED CELL DISTRI WIDTH 14.8 % (0-14.5); WHITE BLOOD COUNT 7.6 10*3/uL (4.8-10.8)
[2022-04-10 04:03] LABS: MANUAL DIFF REFLEX YES
[2022-04-10 04:13] LABS: ACT PARTIAL THROMBO TIME 20.8 SECONDS (20.0-32.1); INTERNATIONAL NORM RATIO 1.1 (2.0-3.5)
[2022-04-10 04:17] LABS: CREATININE 2.09 mg/dL (0.55-1.02); POTASSIUM 3.6 mmol/L (3.5-5.1)
[2022-04-10 04:18] LABS: FREE T4 1.32 ng/dl (0.76-1.46)
[2022-04-10 04:23] LABS: THYROID STIM HORMONE (HS) 1.66 uIU/ml (0.358-4.75)
[2022-04-10 04:24] LABS: PLATELET SUFFICIENCY NORMAL (NORMAL); TOTAL CELLS COUNTED 100 #CELLS
[2022-04-10 04:25] LABS: OVALOCYTES FEW
[2022-04-11 00:06] VITALS: BP 113/67
[2022-04-11 04:00] VITALS: BP 135/88
[2022-04-11 05:53] LABS: CREATININE 1.92 mg/dL (0.55-1.02)
[2022-04-11 06:00] LABS: HEMATOCRIT 36.1 % (37.0-47.0); MEAN CORPUSCULAR HGB 23.5 pg (27.0-31.0); MEAN CORPUSCULAR HGB CONC 29.1 g/dl (33.0-37.0); MEAN PLATELET VOLUME 9.9 fl (9.6-12.3); PLATELET COUNT AUTOMATED 202 10*3/uL (130-400); RED BLOOD COUNT 4.47 10*6/uL (4.10-5.10); RED CELL DISTRI WIDTH 14.8 % (0-14.5); WHITE BLOOD COUNT 7.1 10*3/uL (4.8-10.8)
[2022-04-11 07:13] LABS: MANUAL DIFF REFLEX YES; MEAN CELL VOLUME 80.8 fl (81.0-99.0)
[2022-04-11 07:16] LABS: PLATELET SUFFICIENCY NORMAL (NORMAL); TOTAL CELLS COUNTED 100 #CELLS
[2022-04-11 07:18] LABS: OVALOCYTES FEW
[2022-04-11 08:00] VITALS: BP 112/97
[2022-04-11 12:00] VITALS: BP 112/77
[2022-04-11 16:00] VITALS: BP 96/50
[2022-04-11 20:00] VITALS: BP 101/55
[2022-04-12] VITALS: BP 100/61
[2022-04-12 06:12] LABS: MEAN CELL VOLUME 78.3 fl (81.0-99.0); MEAN CORPUSCULAR HGB 23.3 pg (27.0-31.0); MEAN CORPUSCULAR HGB CONC 29.7 g/dl (33.0-37.0); MEAN PLATELET VOLUME 9.6 fl (9.6-12.3); PLATELET COUNT AUTOMATED 242 10*3/uL (130-400); WHITE BLOOD COUNT 7.7 10*3/uL (4.8-10.8)
[2022-04-12 06:18] LABS: POTASSIUM 4.8 mmol/L (3.5-5.1)
[2022-04-12 06:26] LABS: CREATININE 1.91 mg/dL (0.55-1.02); MANUAL DIFF REFLEX YES
[2022-04-12 06:51] LABS: TOTAL CELLS COUNTED 100 #CELLS
[2022-04-12 06:52] LABS: BURR CELLS FEW; OVALOCYTES MODERATE; PLATELET SUFFICIENCY NORMAL (NORMAL)
[2022-04-12 08:00] VITALS: BP 123/77
[2022-04-12 09:25] VITALS: BP 115/73
[2022-04-12 12:00] VITALS: BP 96/52
[2022-04-12 16:00] VITALS: BP 107/72
[2022-04-12 20:00] VITALS: BP 117/93
[2022-04-13] VITALS: BP 110/86
[2022-04-13 06:02] LABS: CREATININE 1.94 mg/dL (0.55-1.02); POTASSIUM 5.2 mmol/L (3.5-5.1)
[2022-04-13 08:00] VITALS: BP 124/83
[2022-04-13 12:00] VITALS: BP 127/89
[2022-04-13] MEDS ORDERED: PREDNISONE10 MG PO (12:50)
[2022-04-13] MEDS ORDERED: DOXYCYCLINE HY100 M3 PO (12:50)
[2022-04-13 16:00] VITALS: BP 120/77
[2022-04-13 20:00] VITALS: BP 106/66
[2022-04-14] VITALS: BP 122/73
[2022-04-14 05:07] LABS: CREATININE 1.78 mg/dL (0.55-1.02); POTASSIUM 5.3 mmol/L (3.5-5.1)
[2022-04-14 08:00] VITALS: BP 119/86
[2022-04-14 12:00] VITALS: BP 121/63
== END 2022-04-14 14:10 | disposition home or self-care (01) | DRG 871 ==
LOC: ED 23:00 → 4E 04-10 02:10 → EDHOLD 04-10 02:10 → 4E 04-10 02:41
PROVIDERS: Family Medicine; Internal Medicine; ADMIT Internal Medicine; ATTEND Internal Medicine
DX: A41.9 Sepsis, unspecified organism (principal); J18.9 Pneumonia, unspecified organism; N17.0 Acute kidney failure with tubular necrosis; J96.01 Acute respiratory failure with hypoxia; I50.23 Acute on chronic systolic (congestive) heart failure; E44.0 Moderate protein-calorie malnutrition; I13.0 Hypertensive heart and chronic kidney disease with heart failure and stage 1 through stage 4 chronic kidney disease, or unspecified chronic kidney disease; N18.4 Chronic kidney disease, stage 4 (severe); E87.2 Acidosis; K26.9 Duodenal ulcer, unspecified as acute or chronic, without hemorrhage or perforation; I34.0 Nonrheumatic mitral (valve) insufficiency; E11.65 Type 2 diabetes mellitus with hyperglycemia; Z20.822 Contact with and (suspected) exposure to COVID-19; E87.6 Hypokalemia; I25.10 Atherosclerotic heart disease of native coronary artery without angina pectoris; E55.9 Vitamin D deficiency, unspecified; J44.9 Chronic obstructive pulmonary disease, unspecified; R65.20 Severe sepsis without septic shock; D50.9 Iron deficiency anemia, unspecified; Z88.1 Allergy status to other antibiotic agents; Z95.0 Presence of cardiac pacemaker; Z88.0 Allergy status to penicillin; Z83.6 Family history of other diseases of the respiratory system; Z88.2 Allergy status to sulfonamides; Z82.49 Family history of ischemic heart disease and other diseases of the circulatory system; Z88.8 Allergy status to other drugs, medicaments and biological substances; Z68.20 Body mass index [BMI] 20.0-20.9, adult

== ENCOUNTER 2022-04-17 11:01 | Emergency (ER) | payer OTHER ==
[~2022-04-17] VITALS: Wt 52.2 kg
[~2022-04-17 11:01] MED LIST changes: +DOXYCYCLINE HY100 M3 PO; +PREDNISONE10 MG PO
[2022-04-17 12:03] LABS: BASO % 0.1 % (0.0-1.0); EOS % 0.6 % (1.0-4.0); HEMATOCRIT 37.5 % (37.0-47.0); LYMPH # 0.6 10*3/uL (1.3-4.4); LYMPH % 8.7 % (27.0-41.0); MEAN CELL VOLUME 78.3 fl (81.0-99.0); MEAN CORPUSCULAR HGB 22.5 pg (27.0-31.0); MEAN CORPUSCULAR HGB CONC 28.8 g/dl (33.0-37.0); MEAN PLATELET VOLUME 9.1 fl (9.6-12.3); MONO # 1.1 10*3/uL (0.1-1.0); MONO % 15.5 % (3.0-9.0); NEUT # 5.4 10*3/uL (2.3-7.9); NEUT % 74.4 % (47.0-73.0); PLATELET COUNT AUTOMATED 197 10*3/uL (130-400); RED BLOOD COUNT 4.79 10*6/uL (4.10-5.10); RED CELL DISTRI WIDTH 15.2 % (0-14.5); WHITE BLOOD COUNT 7.3 10*3/uL (4.8-10.8)
[2022-04-17 12:27] LABS: CREATININE 1.64 mg/dL (0.55-1.02); POTASSIUM 5.1 mmol/L (3.5-5.1); TOTAL PROTEIN 5.6 gm/dL (6.4-8.2)
[2022-04-17] MEDS ORDERED: ATORVASTATIN CA40 M1 PO (12:39)
== END 2022-04-17 15:55 | disposition home or self-care (01) ==
LOC: ED 11:01
PROVIDERS: Physician Assistant
DX: J18.9 Pneumonia, unspecified organism (principal); I50.33 Acute on chronic diastolic (congestive) heart failure

== ENCOUNTER → 2023-12-04 | Outpatient (CLI) | payer OTHER ==
[2023-12-04] VITALS (8 sets, daily range): BP systolic 100–115; BP diastolic 47–67
[~2023-12-04] MED LIST changes: +LEVOFLOXACIN750 M2 PO; +PREDNISONE50 MG PO; +PROVENTIL HFA6.7 GM INH; +SODIUM CHLORIDE 0.9% 500 ML IV ONE; +VITAMIN D350 MC2 PO
== END | disposition home or self-care (01) ==
LOC: TRNFUSION 03:37
PROVIDERS: ATTEND Family Medicine
DX: D64.9 Anemia, unspecified (principal); C52 Malignant neoplasm of vagina; I13.0 Hypertensive heart and chronic kidney disease with heart failure and stage 1 through stage 4 chronic kidney disease, or unspecified chronic kidney disease; I50.9 Heart failure, unspecified; N18.4 Chronic kidney disease, stage 4 (severe); I25.10 Atherosclerotic heart disease of native coronary artery without angina pectoris; E78.5 Hyperlipidemia, unspecified; J44.9 Chronic obstructive pulmonary disease, unspecified; Z95.810 Presence of automatic (implantable) cardiac defibrillator; Z87.891 Personal history of nicotine dependence